=== PATIENT | female | born 1940 | race Caucasian/White ===

== ENCOUNTER 2024-02-11 05:33 | Inpatient (IN) | payer OTHER, SELFPAY ==
[2024-02-11] VITALS (32 sets, daily range): BP systolic 111–166; BP diastolic 33–88; PULSE 2–97
[2024-02-11] MEDS: DUONEB 3 ML INH ×4 (02:06→19:56)
[2024-02-11 02:11] LABS: Hematocrit 31.3 % (37.0-47.0); Hemoglobin 9.8 g/dL (12.0-16.0); Mean Corp Hgb Conc. 31.3 g/dL (33.0-37.0); Mean Corpuscular Hgb 28.8 pg (27.0-31.0); Mean Corpuscular Volume 92.1 fL (81.0-99.0); Mean Platelet Volume 12.6 fL (7.4-10.4); Platelet Count 205 10^3/uL (130-400); Red Cell Dist. Width 15.1 % (11.5-14.5); White Blood Cell Count 18.2 10^3/uL (4.8-10.8)
[2024-02-11 02:43] LABS: % Basophils 0.3 % (0-2); % Eosinophils 27.2 % (0-6); % Immature Granulocytes 0.2 % (0-0.5); % Lymphocytes 10.4 % (20.5-51.1); % Monocytes 4.4 % (1.7-9.3); % Neutrophils 57.5 % (42.2-75.2); Absolute Basophils 0.1 10^3/uL (0-0.2); Absolute Lymphocytes 1.9 10^3/uL (1.2-3.4); Absolute Monocytes 0.8 10^3/uL (0.1-0.6); Absolute Neutrophils 10.5 10^3/uL (1.4-6.5); Nucleated Red Blood Cells % 0 %
--- NOTE | 2024-02-11 02:47 | ED.GENMED ---
History of Present Illness
General
Chief Complaint: Breathing Problem
Source: patient, ambulance crew and previous hospital records (Previous hospitalization February 2021 after suffering a fall, treated for mild rhabdomyolysis, COPD, possible new lacunar infarct.)
Exam Limitations: clinical condition (Markedly weak, tachypneic, poor historian as to recent events) and altered mental status
Time Seen by Provider: 02/11/24 01:40
Nursing documentation reviewed up to this point in time: agreed with
History of Present Illness
History of Present Illness:
This is an 83-year-old woman who resides at home, receives help from caretakers. She has history of hypertension, hyperlipidemia, chronic kidney disease, COPD utilizing O2, 2 L at nighttime, rheumatoid arthritis chronically maintained on
prednisone, bioprosthetic aortic valve replacement, as well as history of potential acute infarct noted during hospitalization February 2021. Not maintained on anticoagulants save for low-dose aspirin.
She presents via EMS after inadvertently rolling out of bed injuring her right hand. She is unsure if she struck her head and is unsure how long she was lying on the floor next to her bed. She was found by juvenile counselor who then called 911. Upon EMS
arrival patient noted to be tachypneic, not wearing her oxygen and initial room air pulse ox 75%. Was given nebulizer treatment prehospital and placed on nasal cannula oxygen.
Patient states she generally does not require 24-hour oxygen, utilizes only at nighttime.
She is noted to have a skin tear and some bruising dorsal aspect of the right hand with moderate local pain. She is unsure if she struck her head but believes she may have. She denies headache, denies neck nor back pain.
She states she can generally walk with a walker.
Past History
Past History
ED Past Medical History: Asthma, COPD, CVA (Lacunar infarct 2020), HTN, Hypercholesterolemia, Psychiatric and Other (Rheumatoid arthritis chronically maintained on prednisone)
ED Past Surgical History: Cardiac (Bioprosthetic AV Replacement 2014) and Orthopedic
Social History
Tobacco: Former smoker
Alcohol: None
Drug: None
Living: with family
Family History
Family History: Negative Diabetes, Hypertension or CAD
Phy Exam
Physical Exam
Physical Exam:
GENERAL: 83-year-old woman appears somewhat chronically debilitated, mild to moderate resting tachypnea, able to speak in 1-2 word answers. Appears moderately weak, preferentially leaning to her left side.
EYE: pupils equal and reactive. Extraocular muscles intact anicteric
NECK: Supple, nontender, no midline bony tenderness, full range of motion without difficulty nor pain.. The head is normocephalic, atraumatic. No meningismus, no significant adenopathy.
ENT: posterior pharynx is clear, lips and oral mucosa are moderately dry. TM clear b/l, nares patent.
CARDIAC: Regular rate and rhythm. no murmur.
LUNGS: Mild to moderate respiratory distress with audible expiratory wheezing. Moderately decreased breath sounds throughout with scattered expiratory wheezing.
ABDOMEN: Soft, nondistended, without focal tenderness, no r/g, no cvat. normoactive BS.
BACK: No midline bony tenderness. No palpable bony pelvic tenderness.
NEUROLOGICAL: Awake, moderately drowsy, oriented x 2, motor strength 5/5 right upper extremity, 4/5 left upper extremity. Motor strength 4/5 right lower extremity, 3/5 left lower extremity. There is a questionable mild left facial droop versus
related to preferential positioning leaning to the left. No gross sensory deficits.
SKIN: Warm and dry, mildly pale in color, there is a 5 cm linear skin tear right dorsal hand. No active bleeding. Moderate local ecchymosis with moderate tenderness over the second metacarpal. There is full digit and wrist range of motion without
difficulty nor pain.
MUSCULOSKELETAL: No clubbing or cyanosis. Trace pretibial edema bilateral lower legs.
PSYCH: Mildly blunted affect. Cooperative.
Scores
Heart Failure Risk
Heart Failure Risk Score: Yes
History of Stroke or TIA: Yes
History of intubation for respiratory distress: No
Heart rate on ED arrival >/= 110: No
SaO2 <90% on arrival on room air: Yes
HR >/=110 during 3min walk test (or too ill to perform test): Yes
ECG has acute ischemic changes: No
Urea >/=12mmol/L (BUN 33.6mg/dL): Yes
Serum CO2>/=35mmol/L: No
Troponin I or T elevated to MT Level (0.4mg/dL): No
NT-proBNP >/=5,000ng/L (5,000pg/ml): No
HF Risk Score: 5
Admission Status: VERY HIGH RISK 39.8% Consider admission to hospital
Course
Orders/Labs/Results
Orders:
Orders
02/11/24 01:52
Electrocardiogram (*1) Urgent
Reason for Study: Other
Other Reason for Exam: Respiratory Distress
Cardiac Monitoring- Treatment ONCE
EKG- Treatment ONCE
IV Insert/Care/Rem.- Treatment PRN
CR Chest - 2 Views Urgent
Comment:
Reason For Exam: respiratory distress
O2 Therapy [RESP] Urgent
Titrate/Wean O2 to maintain O2 sat greater than (%): 93
Special Instructions: TO MAINTAIN CONTINUOUS O2 SATS >/= 93%
Pulse Ox/cont/shift [RESP] Urgent
Quantity: 1
Special Instructions: continuous pulse ox
02/11/24 01:54
CT Head W/o Iv Contrast Urgent
Comment:
Reason For Exam: fall out of bed, lethargy
Hand, Right 3 View [CR Hand - Right Min 3 Views] Urgent
Comment:
Reason For Exam: fall out of bed, R dorsal hand injury
02/11/24 01:57
Complete Blood Count/With Diff Urgent
02/11/24 02:03
Ipratropium/Albuterol Sulfate [Duoneb] 3 ml INH R NOW ONE
02/11/24 02:48
Comprehensive Metabolic Panel Urgent
Creatine Phosphokinase Urgent
NT-proBNP Urgent
Troponin I Urgent
02/11/24 03:46
Lactic Acid Urgent
02/11/24 03:58
Straight cath- Treatment ONCE
02/11/24 04:00
Piperacillin/Tazo 3.375 Gram [Zosyn] 3.375 gram in 50 ml IV NOW
02/11/24 04:06
LYTES [Electrolytes] Stat
Urinalysis Reflex To Culture Urgent
Date Specimen was Collected: 02/11/24
Time Specimen was Collected: 04:05
Urine Microscopic Reflex Cult Urgent
Urine Culture Urgent
AMBERLY Source: U
Specimen Description:
Date Specimen was Collected: 02/11/24
Time Specimen was Collected: 04:05
02/11/24 04:32
0.9% Sodium Chloride 1000 ml [Nss] 1,000 ml IV 80 mls/hr
Calcium Gluconate 1,000 mg IV NOW STA
Dextrose 50%-Water [Dextrose 50% Syringe] 12.5 grams IV [id number] PRN
Dextrose 50%-Water [Dextrose 50% Syringe] 25 grams IV NOW STA
Furosemide [Lasix] 20 mg IV NOW STA
Insulin Human Regular [Novolin R] 5 units IV NOW STA
02/11/24 04:33
Bedside Glucose- Treatment DIRECTED
Bedside Glucose- Treatment ONCE
02/11/24 04:57
Arterial Blood Gas Stat
%Oxygen/Room Air: 28
02/11/24 05:20
Admit/Transfer Patient As Directed
Co-Sign Provider:
Level of Care: Inpatient admission
Assign to:: IMU- Intermediate Care
Physician / Group: hospitalist
Diagnosis: acute respiratory distress
Reason for Hospitalization: respiratory distress
Expected length of stay greater than two midnights?: Yes
ELOS- Estimated Length of Stay in days: 2
I certify the patient meets the requirements for IP care: Yes
02/11/24 05:22
PRN Pain Medication Management As Directed
May give lesser potent ordered pain med per pt: Yes
preference::
Protocol:: Medication orders for pain may be administered in a
manner that supports deferring to patient preference
when the pt is:
- Requesting an ordered lesser potent pain medication.
Least to most potent pain medications are defined
as: acetaminophen < NSAID < tramadol < opioids
(morphine, oxycodone, hydromorphone).
- Requesting a lesser dose of the same medication IF
ORDERED.
- Requesting a less intrusive route of administration
if both routes are prescribed by the provider (PO <
IV).
Bipap [RESP] Urgent
Patient to use own unit?: No
Inspiratory Pressure (cm H2O): 10
Expiratory Pressure (cm H2O): 5
Oxygen Liter Flow: 3
02/11/24 05:24
Code Status As Directed
Resuscitation Status: Full Code
02/11/24 05:31
Albuterol Sulfate [Albuterol Sulfate Inhalant Solution] See Protocol INH R ONCE STA
Dosage in mg/hr: 10 mg/hr (2 mL/hr)
Duration of continuous nebulizer in hours: 4
Total dose delivered in m mg
Volume of Albuterol to add to nebulizer: 8 mL
Add saline for total nebulizer volume of: 100 mL
MethylPREDNISolone PF [Solu-Medrol Pf] 125 mg IV NOW STA
02/11/24 07:03
Potassium Urgent
Comment: draw 2 hours after regular insulin IV administration
02/11/24 09:05
Potassium Urgent
Comment: draw 4 hours after furosemide administered
Abnormal Lab Results
02/11/24 02/11/24 02/11/24
01:57 02:48 03:46
WBC 18.2 H 10^3/uL
(4.8-10.8)
RBC 3.40 L 10^6/uL
(4.20-5.40)
Hgb 9.8 L g/dL
(12.0-16.0)
Hct 31.3 L %
(37.0-47.0)
MCHC 31.3 L g/dL
(33.0-37.0)
RDW 15.1 H %
(11.5-14.5)
MPV 12.6 H fL
(7.4-10.4)
Absolute Neuts (auto) 10.5 H 10^3/uL
(1.4-6.5)
Absolute Monos (auto) 0.8 H 10^3/uL
(0.1-0.6)
Absolute Eos (auto) 5.0 H 10^3/uL
(0-0.7)
Lymphocytes % 10.4 L %
(20.5-51.1)
Eosinophils % 27.2 H %
(0-6)
pH
pCO2
pO2
ABG O2 Sat (Measured)
Potassium 6.6 H* mmol/L
(3.5-5.1)
Chloride
BUN 41 H mg/dl
(7-17)
Creatinine 1.8 H mg/dL
(0.6-1.0)
Glucose 130 H mg/dl
(70-99)
Lactic Acid 0.5 L mmol/L
(0.7-2.0)
Creatine Kinase 217 H U/L
(30-135)
Troponin I 0.047 H* ng/ml
Urine Bilirubin
Leukocyte Esterase Rfl
Urine Bacteria (Reflex)
Urine Albumin (Reflex)
02/11/24 02/11/24
04:06 04:57
WBC
RBC
Hgb
Hct
MCHC
RDW
MPV
Absolute Neuts (auto)
Absolute Monos (auto)
Absolute Eos (auto)
Lymphocytes %
Eosinophils %
pH 7.18 L*
(7.35-7.45)
pCO2 67 H mmHg
(32-35)
pO2 132 H mmHg
(83-108)
ABG O2 Sat (Measured) 99.7 H %
(94-98)
Potassium 6.3 H* mmol/L
(3.5-5.1)
Chloride 108 H mmol/L
(98-107)
BUN
Creatinine
Glucose
Lactic Acid
Creatine Kinase
Troponin I
Urine Bilirubin 1+ A
(Negative)
Leukocyte Esterase Rfl 1+ A
(Negative)
Urine Bacteria (Reflex) Few A
(Negative)
Urine Albumin (Reflex) 1+ A
(Neg - Trace)
02/11/24 01:57
02/11/24 04:06
Vital Signs
Initial and Last Documented VS:
Initial Vital Signs
Pulse Resp Pulse Ox
79 22 95
02/11/24 01:22 02/11/24 01:22 02/11/24 01:22
Last Documented Vital Signs
Temp Pulse Resp BP Pulse Ox
99.5 F 75 20 143/51 98
02/11/24 04:14 02/11/24 03:05 02/11/24 05:17 02/11/24 03:03 02/11/24 03:05
Procedures
Laceration Closure
Right Dorsal Hand:
Status of Wound: clean
Size of Wound in cm: 5
Description of Wound Edges: sharp
Preparation: cleaned with saline
Revision/Debridement: routine- no revision and irrigate-direct pressure
Wound exploration: explored to base- no FB
Type of Closure: Dermabond-skin glue
MDM/Problems Addressed
Differential Diagnosis Includes:
Concern for exacerbation of COPD, less likely CHF, pneumonia.
Patient is noted to have significant generalized weakness and is moderately weaker on the left compared to the right, concern for acute CVA. She cannot recall timing of her fall out of bed nor how long she was lying on the floor.
Also unclear as to timing of when she went to bed, thus at this point patient is a potential wake-up stroke versus chronic generalized weakness as she apparently does have caretakers at home.
Other consideration is rhabdomyolysis, concern for prolonged time after fall out of bed.
Concern for acute traumatic intracranial injury.
She is immunocompromised with chronic prednisone use, generalized weakness could also be related to sepsis, occult infectious process.
Mild to moderate resting tachypnea but pulse ox high 90s on 4 L nasal cannula.
Will give DuoNeb nebulizer.
Labs are pending. Will add CPK to assess for potential rhabdomyolysis.
Will check CT of the head as well as chest x-ray and x-ray of right hand. Concern for metacarpal fracture.
Skin tear has been thoroughly cleansed, irrigated with normal saline solution and repaired with Dermabond pernio.
Chronic conditions affecting care: HTN, Arrhythmia, COPD, Immunosuppressed and Kidney disease
*Radiology
Radiology exam reviewed: preliminary read by ED provider ( Chest x-ray concerning for subtle right lower lobe infiltrate, also consider very mild interstitial fullness compared to previous.)
*Pulse Oximetry
Patient hypoxic: yes
*EKG
Interpreted by ED Provider?: Yes
Comparison EKG: no changes (Unchanged from previous February 2021)
Rate: normal
Rhythm: sinus
[place]: left axis deviation
Interval: normal interval
QRS Pattern: normal QRS
Ischemia: no ischemia
*Outboard Motor Inspector Interpretation
Rate: normal
Interpretation: normal
Rhythm: sinus
*Critical Care Note
Total Time (30-74mins, 75-104mins- exclusive of procedures): 40
comment:
Critical care statement: A total of 40 minutes of critical care time was provided for this patient. This includes management of unstable vital signs, evaluation of the patient at bedside, reviewing the patient's pertinent medical records, discussion
with consultants, review of old EKGs and review of pertinent medical records. This time with separate from time utilized to perform the aforementioned documented procedures
Update Note
Update Note:
Patient is much less tachypneic after nebulizer treatment, she continues with moderate expiratory wheezing but increased air movement and is now noted to have some rales right base.
Chest x-ray concerning for subtle infiltrate right base. Questionable very mild interstitial fullness compared to previous film 2018.
CT of the head shows no acute traumatic findings, similar and unchanged from previous CT 2020.
Right hand x-ray shows no evidence of fracture, moderate DJD.
Labs are remarkable for moderately elevated white blood cell count of 18 which is new compared to previous, mild but overall stable anemia.
Acute significant hyperkalemia at 6.6 without associated acidosis. Chronic kidney disease is unchanged from previous. EKG shows normal sinus rhythm and there is
No evidence of peaked T waves thus concern for a variant potassium result and will repeat stat electrolytes. Hyperkalemia could certainly be cause for her profound generalized weakness.
CPK is only mildly elevated at 200 and likely not cause for hyperkalemia.
Troponin borderline elevated 0.047 but overall improved from previous result 2020. There is no evidence of ischemia on EKG and she continues to deny chest pain.
BNP is elevated at 3000 concerning for CHF.
Patient is afebrile but concern for sepsis thus will add lactic acid. Will repeat stat electrolytes and will check urinalysis.
Will initiate Zosyn for potential pneumonia.
If potassium returns elevated we will plan for IV calcium gluconate, dextrose, insulin as well as a small IV dose of Lasix.
Due to profound weakness, hyperkalemia, concern for pneumonia, concern for subacute CVA patient will require acute hospitalization.
02/11/2024 0522 AM
Potassium remains elevated 6.2.
Patient remains moderately lethargic, mildly/moderately tachypneic thus ABG obtained which shows acute respiratory acidosis with pH of 7.18, CO2 is 67. Normal bicarb, normal PaO2 of 132.
Will initiate BiPAP to assist with respiratory acidosis, hypercarbia which I suspect may be also contributing to her lethargy.
Patient has been evaluated by hospitalist and will plan to admit to ICU.
ED Attending Note
-
Portions of this chart may have been created with voice recognition software.� Occasional wrong word or��sound alike� substitutions may have occurred due to the inherent limitations of voice recognition software.
Discharge Plan
Departure
Patient Disposition: Admit
Date of Disposition: 02/11/24
Time of Disposition: 04:42
Admit to: ICU and IMU
Admit to doctor: Lebron
Presentation/result/management discussed w/ accepting MD/DO: Hospitalist
Condition: Serious
Discharge Problem:
Acute exacerbation of COPD with asthma, Acute hyperkalemia, RLL pneumonia, Contusion of hand, right, Skin tear of right hand without complication, Acute on chronic respiratory failure with hypoxia and hypercapnia
Interventions
Interventions:
*Risk Screen - Suicide Last Done: 02/11/24 01:32
*General Assessment Last Done: 02/11/24 01:32
*Neglect/Abuse Screening Last Done: 02/11/24 01:32
*ED COVID-19 Vaccine History Last Done: 02/11/24 01:40
ED- Cardiac Assessment Last Done: 02/11/24 03:34
ED- Pulmonary Assessment Last Done: 02/11/24 03:34
[2024-02-11 03:16] LABS: ALT (SGPT) 25 U/L (0-35); AST (SGOT) 34 U/L (14-36); Albumin 4.3 g/dl (3.5-5.0); Alkaline Phosphatase 117 U/L (38-126); Blood Urea Nitrogen 41 mg/dl (7-17); Calcium 9.7 mg/dl (8.4-10.2); Carbon Dioxide 23 mmol/L (22-30); Chloride 107 mmol/L (98-107); Creatine Phosphokinase 217 U/L (30-135); Glucose 130 mg/dl (70-99); Potassium 6.6 mmol/L (3.5-5.1); Sodium 142 mmol/L (135-145); Total Bilirubin 0.4 mg/dl (0.2-1.3); Total Protein 7.3 g/dl (6.3-8.2); eGFR 27.44
[2024-02-11 03:28] LABS: NT-proBNP 3010 pg/ml; Troponin I 0.047 ng/ml
[2024-02-11] MEDS: ZOSYN 50 IV ×4 (04:08→20:59)
[2024-02-11 04:10] LABS: Lactic Acid 0.5 mmol/L (0.7-2.0)
[2024-02-11 04:12] LABS: Urine Albumin 1+ (Neg - Trace); Urine Bilirubin 1+ (Negative); Urine Character Clear (Clear); Urine Color Yellow; Urine Glucose Negative (Negative); Urine Ketone Negative (Negative); Urine Leukocyte 1+ (Negative); Urine Nitrite Negative (Negative); Urine Occult Blood Negative (Negative); Urine Specific Gravity 1.025 (<1.030); Urine Urobilinogen Negative (Neg - 1+)
[2024-02-11 04:31] LABS: Carbon Dioxide 23 mmol/L (22-30); Chloride 108 mmol/L (98-107); Potassium 6.3 mmol/L (3.5-5.1); Sodium 142 mmol/L (135-145)
[2024-02-11 04:36] LABS: Urine Bacteria Few (Negative); Urine Red Blood Cell 0-2 /HPF (0-2)
--- NOTE | 2024-02-11 04:46 | HPS.HSE ---
Family Physician
-
Family Physician: NOT KNOW UNKNOWN - PT DOES
Chief Complaint
-
Hypoxic and found down at home.
History of Present Illness
Patient was unable to provide much history for me she was arousable and opens eyes but is not speaking or following commands. Also appears to have increased work of breathing with her.
Presents after being found down by EMS. Patient initially provided history to ED staff. She reported that she has been feeling unwell for about a couple of days. It is unclear the mechanism of pain on the floor. Patient stated that she rolled
out of bed and fell on the floor but when pressed she says she does not remember. It is unclear the last normal evaluation. She had somebody helping for the last 2 days due to feeling ill. Could not specify further. She did not mention any
nausea vomiting or diarrhea. She did not mention any chest pain. She did not mention any abdominal pain or discomfort. She did not mention any back pain. She had had no fevers. Unable to provide any medications or medication changes. Extremely
weak in the ED but had no complaints of focal weakness.
Is unclear how long she was down for. When found down by EMS she was hypoxic and wheezy. She was given some initial treatments placed on oxygen and brought to the ED. On arrival she was satting 75%. She has a temp of 99, blood pressure of 143/51
pulse of 75 and she satting 98% on nasal cannula. Initial troponin was 0.047 BNP 3010. Lactic acid is normal. Chest x-ray shows no acute infiltrates to me but cannot rule out retrocardiac opacity. No obvious pleural effusion. No obvious
pulmonary edema. ECG was normal sinus rhythm right bundle which is unchanged from prior.
The CT of the head shows no hemorrhage mass or mass effect. No obvious acute large stroke. Chronic sinusitis noted.
He has a white count of 15,000, hemoglobin was 9.8 with a platelet count of 205. She has a 27% eosinophil with peripheral eosinophilia. Initial potassium was 6.6 and on multiple repeats was 6.3. BUN/creatinine 41 and 1.8 respectively which is
unchanged from prior in any significant way. Glucose was 110. CK was 217. UA was contaminated and not obviously infected.
Medical History
Past Medical History
Past Medical History: Reports COPD, HTN and Hypercholesterolemia
Additional Past Medical History:
CKD
s/p bioprosthetic valve
RA
Anxiety
Chronic steroids
Past Surgical History: Reports Cardiac (Aortic Valve Replacement)
Social History
Unable to obtain full social history at this time due to: Acuity
Living: Alone
Family History
Family History: Not pertinent
Allergies / Home Medications
Allergies reflects when Allergies were last updated in [email or web address].
Home Medications with original date entered in [email or web address]
Allergy/Medication List:
Allergies
Allergy/AdvReac Type Severity Reaction Status Date / Time
seasonal allergies Allergy Unknown Uncoded 03/10/22 17:35
Home Medications
montelukast 10 mg tablet 10 mg PO DAILY Mental Health/Anxiety 07/09/13
budesonide-formoterol HFA 80 mcg-4.5 mcg/actuation aerosol inhaler (Symbicort) 2 puff inhalation R BIDPRN PRN sob/congsetionallergies 12/18/17
gabapentin 300 mg capsule 300 mg PO DAILY Neurological Condition 12/18/17
magnesium oxide 800 mg PO DAILY Constipation 12/18/17
omeprazole 40 mg capsule,delayed release 40 mg PO DAILY Gastrointestinal issue 12/18/17
paroxetine HCl 20 mg tablet 20 mg PO DAILY Mental Health/Anxiety 12/18/17
albuterol sulfate 90 mcg/actuation aerosol inhaler 2 puff inhalation R Q4HPRN PRN sob 03/08/21
clonidine HCl 0.1 mg tablet 0.1 mg PO DAILY Blood pressure 03/08/21
clonidine HCl 0.1 mg tablet 0.2 mg PO QPM Blood pressure 03/08/21
prednisone 5 mg tablet 15 mg PO DAILY Anti-inflammatory 03/08/21
amlodipine 5 mg tablet 5 mg PO BID #60 tabs 03/11/21
aspirin 81 mg tablet,delayed release 81 mg PO DAILY #30 tabs 03/11/21
atorvastatin 80 mg tablet 80 mg PO QPM #30 tabs 03/11/21
prednisone 20 mg tablet 40 mg (2 x 20 mg) PO DAILY #10 tabs 03/10/22
If medication reconciliation has not been performed, why?: Medication List N/A
Review of Systems
-
Unable to obtain full review of systems at this time due to: Acuity
Physical Exam
Vital Signs
Vital Signs
Temp Pulse Resp BP Pulse Ox
99.5 F 75 18 143/51 98
02/11/24 04:14 02/11/24 03:05 02/11/24 03:05 02/11/24 03:03 02/11/24 03:05
Physical Exam
General: Respiratory Distress
HEENT: NormoCephalic, Anicteric, Atraumatic, PERRLA and Oxygen
Respiratory: Wheezes and Accessory Resp Muscle Use
Cardiac: S1/S2, Regular Rhythm and JVD
Breast: Deferred by me
GI: Soft, Non Tender, Non Distended and Normal Bowel Sounds
Rectal: Deferred by Provider
Genito-urinary: Deferred by me
Musculoskeletal: No Clubbing, No Cyanosis and No Edema
Skin: Warm
Hematologic/Lymphatic: No Lymphadenopathy
Laboratory Results
-
02/11/24 01:57
Laboratory Results
Lactic Acid 0.5 mmol/L (0.7-2.0) L 02/11/24 03:46
Total Bilirubin 0.4 mg/dl (0.2-1.3) 02/11/24 02:48
AST 34 U/L (14-36) 02/11/24 02:48
ALT 25 U/L (0-35) 02/11/24 02:48
Alkaline Phosphatase 117 U/L (38-126) 02/11/24 02:48
Troponin I 0.047 ng/ml H* 02/11/24 02:48
Data Reviewed
-
Diagnostic Radiology: Image Personally Visualized and interpreted
CT Scan: Report Reviewed by me
Medical Tests (Nuc Med, Echo, EKG etc): Image Personally Visualized and interpreted
Lab Data: Labs Reviewed by me
Old Records: Reviewed
Impression/Plan
-
IMPRESSION:
PLAN:
1. Altered mental status - Patient found down and unable to provide history. Weakness on the left side but generally non-focal exam. Only arousable for me but unable to follow commands. No intracranial hemorrhage, mass or mass effect. Cannot
rule out CVA. Possibly toxic metabolic encephalopathy from acute infectious process or from respiratory distress. ABG 7.. She is extremely fatigued. negative urine cultures and afebrile. Marked leukocytosis with eosinophilia.
- admit to imu
- npo for now
- neurochecks q 6
- mri if persistent deficit after correction of acidemia
- iv antibiotics for presumed infection (cannot rule out aspiration), check mrsa swab, legionella ag and procalcitonin
- consider neuroconsult pending stabilization of respiratory status
2. Acute respiratory distress w/o hypoxia - Acute respiratory acidosis. Increased WOB. Wheezing and quite tight. No obvious focal infiltrates or edema. Marked peripheral eosinophila
- place on continous nebs x 4 hours
- bipap 04/17, repeat gas in1 hour
- iv solu-medrol 125 mg once then 40 q 6
- iv lasix x 1 for now, monitor
- continue RTC albuterol q 4 hours after continous nebs
- satting well on 2 - 4 L NC
- pulmonary consultation given degree of peripheral eosinophilia, consider b D-glucan or galactomannan
- ok with zosyn for now.
3. Hyperkalemia - Unclear etiology. No DKA. Has significant CKD but renal function is only slightly worsened. Possibly cellular shifts
- temporize with insulin/dextrose
- continous nebs x 4 hours
- repeat in 4 hours
4. Trop elevation - No ischemia on ECG. No CP. h/o but no known CAD. Trop 0.05
- suspect demand, treating underlying conditions as above
- trend troponin
- aspirin/statin
- echo in am
5. CHF - s/p MVR. Has elevated neck veins. Elevated BNP. No known CHF. No crackles on my exam but poor inspiratory effort and very tight.
- given lasix 20mg in ED,
- echo
- hold off on additional lasix for now
6. HTN - Unable to determine home meds. Previously on amlodipine and clonidine. BP stable
- npo for now
- prn hydralazine 10mg q 6 for SBP < 170
- consider clonidine patch
7. RA - On chronic steroids 15mg daily per records
- on solumedrol currently
DVT PPX - heparin sq
Code Status - Full code based on prior records
[2024-02-11] MEDS: CALCIUM GLUCONATE 1000 MG IV (04:53)
[2024-02-11] MEDS: DEXTROSE 50% SYRINGE 25 GRAMS IV ×2 (04:53→20:53)
[2024-02-11] MEDS: LASIX 20 MG IV (04:53)
[2024-02-11] MEDS: NOVOLIN R 5 UNITS IV (04:54)
[2024-02-11 05:07] LABS: O2 Saturation % 99.7 % (94-98); PCO2 67 mmHg (32-35); PO2 132 mmHg (83-108)
[2024-02-11 05:10] LABS: pH 7.18 (7.35-7.45)
[2024-02-11] MEDS: NSS 1000 IV (05:27)
[2024-02-11 05:36] LABS: Glucose - Point of Care 191 mg/dl (70-99)
[2024-02-11] MEDS: [UNRECOGNIZED DRUG - OTHER] 4 MG INH (06:08)
[2024-02-11 06:29] LABS: Glucose - Point of Care 71 mg/dl (70-99)
[2024-02-11] MEDS: SOLU-MEDROL PF 125 MG IV (06:35)
[2024-02-11] MEDS: DEXTROSE 50% SYRINGE 12.5 GRAMS IV (06:43)
--- NOTE | 2024-02-11 07:11 | EDRN ---
previous night auditor RN called report to the receiving ICU nurse, the pt is resting in stretcher in the lowest position, side rails up x2, call morley within reach, HOB elevated, VS WNL, the pt is lethargic, currently on [place] with breathing
treatment running, Sp02 96%, skin assessed with prior night auditor RN and right arm skin tear present, the pt was turned and repositioned, brief is dry and clean, will continue to monitor the pt closely
[2024-02-11 07:12] LABS: Glucose - Point of Care 100 mg/dl (70-99)
[2024-02-11 07:14] LABS: Potassium 5.3 mmol/L (3.5-5.1)
--- NOTE | 2024-02-11 07:20 | EDRN ---
the pts K came down to 5.3, provider notified
--- NOTE | 2024-02-11 08:03 | PHANOTE ---
med rec not- patient on respiratory machine at this time and not answering question. notes stated patient has infectious diseases physician but no number for her. patient family on file but [place]. patient has no ecw to compare.
--- NOTE | 2024-02-11 09:00 | PTCARENOTE ---
Rec'd patient from ED. Patient lethargic. Arousable with tactile stimuli. Patient briefly opening eyes. Pupils equal and reactive; +2mm. Moving b/l hands and feet upon request. NSR on tele monitor. BiPAP settings adjusted by RT. 14/5 4L. Lung sounds
shallow/diminished with scattered wheezing throughout. +BS. No BM. Purewick in place for urinary incontinence. Right hand skin tear dressing intact. B/l heels boggy; foams applied. Small scattered scabs noted on b/l calf. LFA and LAC INTs flushed
and capped.
[2024-02-11] MEDS: DUONEB INH (09:27)
[2024-02-11 10:18] LABS: Iron 57 ug/dl (37-170)
[2024-02-11 10:28] LABS: Percent Saturation 22 % (20-50); Total Iron Binding Capacity 256 ug/dl (265-497)
[2024-02-11] MEDS: PROTONIX IV 40 MG IV (10:36)
[2024-02-11] MEDS: NSS (PRESERVATIVE FREE) 10 ML IV (10:36)
[2024-02-11] MEDS: HEPARIN 5000 UNITS SC ×2 (10:36→17:43)
--- NOTE | 2024-02-11 10:42 | CM ---
CM reviewed chart and discussed with nursing
Pt not able to provide meaningful info at this time
Call with pt's friend Zonia Juarez [phone]
Pt resides alone in a [address] with [address] in [place]
Pt ambulates with a WW or SPC
She has a paid caregiver/Светлана [phone]) 11-5PM 7 days weekly
Unknown if pt has VN currently
PCP- Carlo Hernandez
Rx- Obed Kenney
Pt's dtr/Samina and MARK/Radha resides in [facility]
Zonia is local and help Ursula out as needed
Discharge Disposition- home with [facility] private duty, watch for higher needs
[2024-02-11 10:53] LABS: Ferritin 44.8 ng/ml (11.1-264.0)
[2024-02-11 11:07] LABS: Vitamin B12 950 pg/ml (239-931)
--- NOTE | 2024-02-11 11:31 | PTCARENOTE ---
Patient more arousable. Remains on BiPAP. RT at bedside to draw ABG.
[2024-02-11 11:35] LABS: Troponin I 0.047 ng/ml
[2024-02-11 11:50] LABS: B.E. -9.3 mmol/L; HCO3 19.7 mmol/L (21-28); O2 Saturation % 99.7 % (94-98); PCO2 58 mmHg (32-35); PO2 76 mmHg (83-108)
[2024-02-11 11:53] LABS: pH 7.14 (7.35-7.45)
[2024-02-11] MEDS: SOLU-MEDROL PF 40 MG IV ×2 (12:19→17:43)
--- NOTE | 2024-02-11 12:34 | CON.PUL ---
Consultation
Consultation Request
Date/Time Consultation Requested: 02/11/24
Date/Time Consultation Performed: 02/11/24
Performing Provider: Kaleigh
Reason for Consultation: COPD
Medical History
-
History of Present Illness:
Patient is an 83-year-old female with previous history of ACOS, hypertension, chronic kidney disease, status post AVR 2012 at [place] presenting to ER following unresponsiveness at home. She was found down by EMS after not feeling well for a
couple days prior to admission. A personal friend gives history as patient could not elaborate. Unclear how long she was found down, she was noted to be hypoxic and wheezing on initial assessments. She is placed on oxygen. Chest x-ray is clear.
ABG performed showing acute CO2 retention placed on BiPAP. She is admitted to IMU.
.
Past Medical History
Past Medical History: Other (see list below)
Social History
Tobacco: Non-smoker
Alcohol: None
Drug: None
Family History
Family History: Unable to Obtain
Allergies / Home Medications
Allergies
Allergy/AdvReac Type Severity Reaction Status Date / Time
seasonal allergies Allergy Unknown Uncoded 03/10/22 17:35
Home Medications
�Medication �Instructions �Recorded �Confirmed �Last Taken �Type
montelukast 10 mg tablet 10 mg PO DAILY Mental 07/09/13 02/11/24 01/21/14 History
Health/Anxiety
gabapentin 300 mg capsule 300 mg PO DAILY Neurological 12/18/17 02/11/24 Unknown History
Condition
magnesium oxide 800 mg PO DAILY Constipation 12/18/17 03/08/21 Unknown History
albuterol sulfate 90 mcg/actuation 2 puff inhalation R Q4HPRN PRN sob 03/08/21 02/11/24 Unknown History
aerosol inhaler
clonidine HCl 0.1 mg tablet 0.1 mg PO DAILY Blood pressure 03/08/21 02/11/24 Unknown History
prednisone 5 mg tablet 15 mg PO DAILY Anti-inflammatory 03/08/21 03/08/21 Unknown History
amlodipine 5 mg tablet 5 mg PO BID #60 tabs 03/11/21 02/11/24 Unknown Rx
aspirin 81 mg tablet,delayed 81 mg PO DAILY #30 tabs 03/11/21 Unknown Rx
release
atorvastatin 80 mg tablet 80 mg PO QPM #30 tabs 03/11/21 02/11/24 Unknown Rx
lisinopril 5 mg tablet 5 mg PO DAILY Blood Pressure 02/11/24 02/11/24 Unknown History
omeprazole 20 mg capsule,delayed 20 mg PO DAILY Gastrointestinal 02/11/24 02/11/24 Unknown History
release Issue
Review of Systems
-
Unable to Obtain full review of systems at this time due to: Acuity
Vitals / Labs / Diagnostic Testing
Vital Signs
Temp Pulse Resp BP Pulse Ox
98.3 F 73 21 124/60 99
02/11/24 08:49 02/11/24 12:21 02/11/24 12:21 02/11/24 12:21 02/11/24 12:21
Lab Data
02/11/24 01:57
02/11/24 09:05
Laboratory Results
02/11/24 02/11/24
04:57 11:39
pH 7.18 L* 7.14 L*
pCO2 67 H 58 H
pO2 132 H 76 L
HCO3 25.0 19.7 L
O2 Delivery Level
Diagnostic Testing:
Physical Exam
-
HEENT: Normocephalic, Anicteric and Moist Mucous Membranes
Cardiovascular: S1/S2 and Regular Rhythm
Respiratory: Clear and Non-Labored Respirations
GI: Soft, Non Distended and Non Tender
Neurology: Awake, Alert, No Motor Deficits and Other (confused, not answering appropriately at times)
Skin: Warm and Dry
General: Comfortable and Other (NAD)
Assessment
-
Patient is an 83-year-old female with previous history of ACOS, hypertension, chronic kidney disease, status post AVR 2012 at [place] presenting to ER following unresponsiveness at home. She was found down by EMS after not feeling well for a
couple days prior to admission. A personal friend gives history as patient could not elaborate. Unclear how long she was found down, she was noted to be hypoxic and wheezing on initial assessments. She is placed on oxygen. Chest x-ray is clear.
ABG performed showing acute CO2 retention placed on BiPAP. She is admitted to IMU.
Acute hypoxic respiratory failure
Acute hypercarbic respiratory failure on BiPAP, ABG
Unresponsive at home, found down by EMS
Leukocytosis
Acute on chronic anemia
Hyperkalemia
Acute kidney injury, 1.8 (BL 1.3-1.5)
Volume overload, proBNP 3010
Conditions present HAND LASTER
Small bowel obstruction, status post left inguinal incarcerated hernia status post repair with mesh 12/18/17
COPD/ Asthma, followed at [facility] before, now with Dr Walters/Stu
Severe obstructive physiology, FEV1 0.83 L
Normal alpha1/igG levels, IgE 715/RAST panel; prior history of bronch with normal cell count/+MRSA/+PCR mycoplasma
Diffuse chronic sinusitis
RA
CKD
GERD/HH/Schatzki's ring dysmotility that was moderately severe and high-grade spontaneous reflux, positive pH probe when recumbent
HTN
HLD
Anxiety
Osteoporosis
B/L total hip replacements
AVR 04/07/13 at [facility] with Dr Santos
ZAINA
Plan
Hypoxemia noted on arrival, O2 edward 78% per report
Currently saturating 99% on BIPAP, can transition off as tolerated
Home O2 evaluation, eventually
Reportedly using PRN O2 at home
Prior history of lung disease is noted including ACOS
Had seen Dr. Connell and Dr. Walters in the past, she does not recall the last time she had seen them
Notably had severe obstructive lung disease with concern for allergic rhinitis-positive IgE/RAST panel in the past
Status post bronchoscopy in the past with MRSA and PCR positive mycoplasma
Suspect patient has acute CO retention from unknown cause
Initial head CT negative, she does not recall events
Underlying dementia may be present as well
CXR/CT obtained indicating NAD
Other imaging reviewed
MELLY and CKD history
HyperK noted
Observe UO, if low consider renal eval
WBC noted
Would be reasonable to r/o infection
Prior ECHO results are reviewed indicating stable AVR
Can repeat testing
proBNP >3000 suggestive volume component as well
Reasonable to discuss GOC, code status
PT/OT eval eventually
We will follow
Diagnostic Data
Chest X-Ray: 02/11/24- 1. Mild hyperinflation, suggestive of COPD.
2. Hazy opacity at the right lung base, which may represent vascular crowding due to COPD or subtle pneumonia.
CT Scan: CAP 01/24/24- There is no evidence of soft tissue mass over the posterior upper chest. No CT finding that would correspond to the findings seen on recent chest radiograph. Minimal dependent atelectasis in the posterior and inferior lower
lobes. 2-mm subpleural nodule in the posterior right lower lobe. This is compatible with a benign nodule and no further follow-up is felt to be necessary.
Small central hiatal hernia. Cholelithiasis with no evidence of gallbladder wall thickening or adjacent edema. Colonic diverticula with no CT evidence of diverticulitis. Changes involving both shoulders and the right hip joint, highly suggestive of
rheumatoid arthritis. Status-post left hip replacement with resultant streak artifact.
Echo: 2012-LV normal in size, mild concentric LVH. New septal paradox is noted. Moderate diastolic dysfunction, EF 70%, biological AV prosthesis. AV peak gradient 20.6, AV mean gradient 11
PFT's: FEV1 1.28L, FVC 2.03L
Reports and relevant images were personally reviewed.
Total time spent on this consultation __75__ includes review of history, physical exam, medications, laboratory data, personal review of imaging, extensive review of outpatient records, discussion with care team and respiratory therapy.
--- NOTE | 2024-02-11 12:57 | W.PN.HOSP.TC ---
Today's Communication/Plan
-
bipap
repeat gas still low PH
Continue BIPAP
Neuro checks
MRI brain when stable
Assessment / Plan
Assessment / Plan
83-year-old female brought in by EMS patient rolled out of bed and fell on the floor unclear how long she was on the floor when EMS arrived her sats were 75%
Head CT-no intracranial hemorrhage or fracture. Mild atrophy. Right posterolateral scalp lesion partially calcified 1.7 cm likely benign chest x-ray-COPD
Pneumonia versus atelectasis right base
CVS: S1-S2 normal
Chest: CTA B/L
Abdomen: Soft, NT / Bowel sounds present
Extremities: No edema
ORDER MANAGER: I didn't appreciate a facial droop, she is drowsy arousable.
# TME
Left-sided weakness-noted on admission. Neuroexam was not possible as she was not cooperative , neurochecks and MRI
# Acute respiratory distress, acute hypoxic respiratory failure
Asthma/COPD exacerbation
Chronic bronchitis
Chronic respiratory failure on home oxygen
Continue nebulizer
BiPAP
IV steroids
Wean oxygen as tolerated
Continue Zosyn for now-right base possible pneumonia
Speech evaluation
# Mildly elevated troponin-pending repeat
# Paroxysmal atrial fibrillation-does not seem to be on anticoagulation as outpatient. Not on any beta-blockers or calcium channel blockers
# Hyperkalemia-treated better. Follow. Hold lisinopril. Will not restart
# CKD stage III
# Anemia-check iron studies
# Rheumatoid arthritis-on prednisone 15 mg daily as outpatient it looks like from previous. On IV steroids now
# GERD-PPI
# Hyperlipidemia-continue statin when able to take p.o.
# Hypertension-on clonidine, amlodipine-to be started after verification. Hold lisinopril. On as needed hydralazine now
# History aortic valve repair
# Arthritis/osteoporosis
# Ex-smoker
# DVT prophylaxis-subcutaneous heparin
D/W Friend at bed side
D/RN at bed side
Called Daughter Son AHSAN answered, says they both have POA. Updated re Gas and how she is. Adde\\ssed code status. He needs to talk to and get back to us.
Total Critical Care Time 40 minutes. I was immediately available to the patient and staff. I personally examined, reviewed labs, diagnostic images/reports, interpretations, treatment plans, discussed patient care with other providers and family
entered orders as appropriate and documented the medical record.
Part of this note was created using voice recognition system. Occasional wrong word or��sound alike� substitutions may have inadvertently occurred due to the inherent limitations of voice recognition software. If noted kindly bring it to my
attention for correction.
Anticipated Discharge: > 48 hours
Subjective/Interval History
-
Date of Service: February 11, 2024
Objective Data
-
Labs:
Laboratory Results
02/11/24 02/11/24 02/11/24
01:57 02:48 04:06
WBC 18.2 H
Hgb 9.8 L
Hct 31.3 L
Plt Count 205
HCO3
Sodium Cancelled 142 142
Potassium Cancelled 6.6 H* 6.3 H*
Chloride Cancelled 107 108 H
Carbon Dioxide Cancelled 23 23
BUN Cancelled 41 H
Creatinine Cancelled 1.8 H
Glucose Cancelled 130 H
Calcium Cancelled 9.7
Total Bilirubin Cancelled 0.4
AST Cancelled 34
ALT Cancelled 25
Alkaline Phosphatase Cancelled 117
02/11/24 02/11/24 02/11/24
04:57 06:56 09:05
WBC
Hgb
Hct
Plt Count
HCO3 25.0
Sodium
Potassium 5.3 H Cancelled
Chloride
Carbon Dioxide
BUN
Creatinine
Glucose
Calcium
Total Bilirubin
AST
ALT
Alkaline Phosphatase
02/11/24
11:39
WBC
Hgb
Hct
Plt Count
HCO3 19.7 L
Sodium
Potassium
Chloride
Carbon Dioxide
BUN
Creatinine
Glucose
Calcium
Total Bilirubin
AST
ALT
Alkaline Phosphatase
Vital Signs:
Vital Signs
Temp Pulse Resp BP Pulse Ox
98.3 F 73 21 124/60 99
02/11/24 08:49 02/11/24 12:21 02/11/24 12:21 02/11/24 12:21 02/11/24 12:21
[2024-02-11] MEDS: OCEAN, SALINE MIST 2 SPRAYS NASAL (16:45)
[2024-02-11 20:23] LABS: Venous Blood Gas B.E. -8.6 mmol/L (-4 to +4); Venous Blood Gas HCO3 19.5 mmol/L (22-27); Venous Blood Gas O2 Sat % 94.4 %; Venous Blood Gas pCO2 51 mmHg (35-48); Venous Blood Gas pO2 60 mmHg (30-50)
[2024-02-11 20:24] LABS: Venous Blood Gas O2 Therapy %Oxygen/Room Air 40
[2024-02-11 20:25] LABS: Venous Blood Gas pH 7.19 (7.32-7.43)
[2024-02-11 20:41] LABS: Blood Urea Nitrogen 45 mg/dl (7-17); Calcium 9.9 mg/dl (8.4-10.2); Carbon Dioxide 19 mmol/L (22-30); Chloride 107 mmol/L (98-107); Estimated Creatinine Clearance 17 ml/min; Glucose 108 mg/dl (70-99); Potassium 6.7 mmol/L (3.5-5.1); Sodium 142 mmol/L (135-145); eGFR 24.18
[2024-02-11 20:50] LABS: Troponin I 0.035 ng/ml
[2024-02-11] MEDS: NOVOLIN R 10 UNITS IV (20:53)
[2024-02-11] MEDS: DESENEX/MITRAZOL/ZEASORB 1 APPLIC TOPICAL (20:58)
[2024-02-11 22:14] LABS: Glucose - Point of Care 183 mg/dl (70-99)
[2024-02-12] VITALS (26 sets, daily range): BP systolic 132–176; BP diastolic 52–146; PULSE 2–84; O2SAT 92–94; BMI 18.9
--- NOTE | 2024-02-12 00:19 | PTCARENOTE ---
Pt received at 19:00, initial assessment as documented. Pt drowsy but easily arousable to verbal stimuli. Remains on bipap 14/5, 2L. K was 6.7, insulin and d50 given as ordered. Safe environment maintained, call morley within reach.
[2024-02-12] MEDS: SOLU-MEDROL PF 40 MG IV ×2 (00:48→05:00)
[2024-02-12] MEDS: HEPARIN 5000 UNITS SC ×3 (03:43→18:07)
[2024-02-12 03:51] LABS: Venous Blood Gas B.E. -6.9 mmol/L (-4 to +4); Venous Blood Gas HCO3 20.5 mmol/L (22-27); Venous Blood Gas O2 Sat % 92.1 %; Venous Blood Gas pCO2 49 mmHg (35-48); Venous Blood Gas pH 7.23 (7.32-7.43); Venous Blood Gas pO2 55 mmHg (30-50)
[2024-02-12 04:04] LABS: Hematocrit 29.1 % (37.0-47.0); Hemoglobin 9.1 g/dL (12.0-16.0); Mean Corp Hgb Conc. 31.3 g/dL (33.0-37.0); Mean Corpuscular Hgb 28.9 pg (27.0-31.0); Mean Corpuscular Volume 92.4 fL (81.0-99.0); Mean Platelet Volume 11.7 fL (7.4-10.4); Platelet Count 179 10^3/uL (130-400); Red Blood Cell Count 3.15 10^6/uL (4.20-5.40); Red Cell Dist. Width 14.8 % (11.5-14.5); White Blood Cell Count 7.4 10^3/uL (4.8-10.8)
[2024-02-12 04:23] LABS: Blood Urea Nitrogen 48 mg/dl (7-17); Calcium 9.6 mg/dl (8.4-10.2); Carbon Dioxide 20 mmol/L (22-30); Chloride 109 mmol/L (98-107); Estimated Creatinine Clearance 17 ml/min; Glucose 104 mg/dl (70-99); Magnesium 2.6 mg/dl (1.6-2.3); Potassium 6.3 mmol/L (3.5-5.1); Sodium 142 mmol/L (135-145); eGFR 24.18
[2024-02-12 04:24] LABS: Procalcitonin 0.34 ng/ml (0.0-0.25)
[2024-02-12] MEDS: NOVOLIN R 10 UNITS IV (04:53)
[2024-02-12] MEDS: ZOSYN 50 IV ×4 (04:59→21:45)
[2024-02-12] MEDS: DEXTROSE 50% SYRINGE 25 GRAMS IV (05:00)
--- NOTE | 2024-02-12 05:24 | PTCARENOTE ---
Pt with small episode of urinary incontinence x1 approx 23:00, with no further urine output. bladder scan at 05:00 = 224ml, denies urge to void.
--- NOTE | 2024-02-12 07:14 | W.PN.PUL3 ---
Today's Communication / Plan
-
Doing well off bipap, mental status improved
Will c/s CM to arrange home set up
Transition IV steroids to PO taper
Consider diuresis
Eventual home O2 eval
PT/OT
Transfer to tele
Assessment
-
Patient is an 83-year-old female with previous history of ACOS, hypertension, chronic kidney disease, status post AVR 2012 at [place] presenting to ER following unresponsiveness at home. She was found down by EMS after not feeling well for a
couple days prior to admission. A personal friend gives history as patient could not elaborate. Unclear how long she was found down, she was noted to be hypoxic and wheezing on initial assessments. She is placed on oxygen. Chest x-ray is clear.
ABG performed showing acute CO2 retention placed on BiPAP. She is admitted to IMU.
Acute hypoxic respiratory failure
Acute hypercarbic respiratory failure on BiPAP, ABG 7.
Unresponsive at home, found down by EMS
Leukocytosis
Acute on chronic anemia
Hyperkalemia
Acute kidney injury, 1.8 (BL 1.3-1.5)
Volume overload, proBNP 3010
Conditions present BOIL[employer]ER SHIP
Small bowel obstruction, status post left inguinal incarcerated hernia status post repair with mesh 12/18/17
COPD/ Asthma, followed at [facility] before, now with Dr Walters/Stu
Severe obstructive physiology, FEV1 0.83 L
Normal alpha1/igG levels, IgE 715/RAST panel; prior history of bronch with normal cell count/+MRSA/+PCR mycoplasma
Diffuse chronic sinusitis
RA
CKD
GERD/HH/Schatzki's ring dysmotility that was moderately severe and high-grade spontaneous reflux, positive pH probe when recumbent
HTN
HLD
Anxiety
Osteoporosis
B/L total hip replacements
AVR 04/07/13 at [facility] with Dr Santos
ZAINA
Plan
Hypoxemia noted on arrival, O2 edward 78% per report
Currently saturating 99% on BIPAP, can transition off as tolerated
Home O2 evaluation, eventually
Reportedly using PRN O2 at home
Prior history of lung disease is noted including ACOS
Had seen Dr. Connell and Dr. Walters in the past, she does not recall the last time she had seen them
Notably had severe obstructive lung disease with concern for allergic rhinitis-positive IgE/RAST panel in the past
Status post bronchoscopy in the past with MRSA and PCR positive mycoplasma
Placed on IV steroids, will cut down to tapering PO dosage
Set up home BIPAP
Suspect patient has acute CO retention from unknown cause
Initial head CT negative, she does not recall events
Underlying dementia may be present as well
Improving
CXR/CT obtained indicating NAD
Other imaging reviewed
MELLY and CKD history
HyperK noted
Observe UO, if low consider renal eval
WBC noted
Would be reasonable to r/o infection
Prior ECHO results are reviewed indicating stable AVR
Can repeat testing
proBNP >3000 suggestive volume component as well
Diuresis per team
Reasonable to discuss GOC, code status
PT/OT eval eventually
Transfer to tele
Diagnostic Data
Chest X-Ray: 02/11/24- 1. Mild hyperinflation, suggestive of COPD.
2. Hazy opacity at the right lung base, which may represent vascular crowding due to COPD or subtle pneumonia.
CT Scan: CAP 01/24/24- There is no evidence of soft tissue mass over the posterior upper chest. No CT finding that would correspond to the findings seen on recent chest radiograph. Minimal dependent atelectasis in the posterior and inferior lower
lobes. 2-mm subpleural nodule in the posterior right lower lobe. This is compatible with a benign nodule and no further follow-up is felt to be necessary.
Small central hiatal hernia. Cholelithiasis with no evidence of gallbladder wall thickening or adjacent edema. Colonic diverticula with no CT evidence of diverticulitis. Changes involving both shoulders and the right hip joint, highly suggestive of
rheumatoid arthritis. Status-post left hip replacement with resultant streak artifact.
Echo: 2013-LV normal in size, mild concentric LVH. New septal paradox is noted. Moderate diastolic dysfunction, EF 70%, biological AV prosthesis. AV peak gradient 20.6, AV mean gradient 11
PFT's: FEV1 1.28L, FVC 2.03L
Reports and relevant images were personally reviewed.
Total time spent on this encounter __50__ includes review of history, physical exam, medications, laboratory data, personal review of imaging, extensive review of outpatient records, discussion with care team and respiratory therapy.
Subjective Data
-
Date of Service:
Date of Service: February 12, 2024
Chief Complaint: Pulmonary Follow Up
Subjective:
no acute events ON, remains stable on low O2 supplemental
off bipap, mentating better
Objective Data
Data Reviewed
Vital Signs / I&O / Oxygen:
Vital Signs
Temp Pulse Resp BP Pulse Ox
99.1 F 80 23 144/58 96
02/12/24 03:28 02/11/24 19:58 02/11/24 19:58 02/11/24 18:00 02/11/24 23:00
Intake and Output
02/11/24 02/12/24 02/13/24
06:59 06:59 06:59
Intake Total 100 / 100
Output Total 300 / 300
Balance -200 / -200
SaO2 96
Nasal Cannula flow liters per 96
minute
Physical Exam
General: Comfortable and Other (NAD)
HEENT: Normocephalic, Anicteric and Moist Mucous Membranes
Cardiovascular: S1-S2 and Regular Rhythm
Respiratory: Clear and Non-Labored Respirations
GI: Soft, Non Distended and Non Tender
Neurology: Awake, Alert and No Motor Deficits
Skin: Warm, Dry and Good Color
Labs/Micro/Reports
Lab Data
02/12/24 03:40
Laboratory Results
02/11/24
11:39
pH 7.14 L*
pCO2 58 H
pO2 76 L
HCO3 19.7 L
O2 Delivery Level
Microbiology
02/11/24 04:06 Urine Legionella Urinary Antigen - Final
Negative for Legionella pneumophila Serogroup 1 antigen.
A negative result does not rule out the possiblity of
Legionella infection due to other serogroups or species of
Legionella. Clinical correlation is recommended.
[2024-02-12] MEDS: DUONEB 3 ML INH (07:55)
[2024-02-12] MEDS: PROTONIX IV 40 MG IV (08:22)
[2024-02-12] MEDS: DESENEX/MITRAZOL/ZEASORB 1 APPLIC TOPICAL ×2 (08:22→20:43)
[2024-02-12] MEDS: NSS (PRESERVATIVE FREE) 10 ML IV (08:22)
--- NOTE | 2024-02-12 08:30 | PTCARENOTE ---
Assumed care of pt at 0715 following shift report. Pt received on O2 at 2l/min via NC w/ POx 92-96%. Asleep but easily arousable to name. Oriented to person and place. 'no idea' to date/time. Denies c/o pain. Reports 'stuffy nose' but denies SOB.
Physical assessment completed as documented. Call morley w/in pt reach. Safe environment maintained.
[2024-02-12 08:51] LABS: Blood Urea Nitrogen 52 mg/dl (7-17); Calcium 10.2 mg/dl (8.4-10.2); Carbon Dioxide 21 mmol/L (22-30); Chloride 108 mmol/L (98-107); Estimated Creatinine Clearance 18 ml/min; Glucose 102 mg/dl (70-99); Sodium 142 mmol/L (135-145); eGFR 24.18
[2024-02-12] MEDS: KAYEXALATE SUSPENSION 30 GRAMS RECTAL (10:14)
--- NOTE | 2024-02-12 10:31 | W.PN.HOSP.TC ---
Addendum entered and electronically signed by Colton Pineda MD 02/12/24 10:59:
hyperkalemia- Kayaxalate enema
Original Note:
Today's Communication/Plan
-
Speech /PT/OT eval
Start Antihypertensives
OK for Tele
Need BIPAP HS and for discharge
Assessment / Plan
Assessment / Plan
83-year-old female brought in by EMS patient rolled out of bed and fell on the floor unclear how long she was on the floor when EMS arrived her sats were 75%
Head CT-no intracranial hemorrhage or fracture. Mild atrophy. Right posterolateral scalp lesion partially calcified 1.7 cm likely benign chest x-ray-COPD
Pneumonia versus atelectasis right base
ECHO-Normal left ventricular size with mild concentric hypertrophy and hyperdynamic systolic function. No regional wall motion abnormalities are seen. LV ejection fraction is left ventricular ejection fraction is greater than 80% with near
obliteration of the LV cavity, resulting in a resting mid cavity gradient is 42/15 mmHg.Normal right ventricular size and systolic function.Moderate left atrial dilation.Thickened mitral valve leaflets with mild mitral valve stenosis.Well seated,
normally functioning bioprosthetic valve.The IVC is mildly dilated and does not collapse. Right atrial pressure estimated at 12 mmHg.No evidence of pulmonary hypertension.
Compared to prior study of 03/09/2021, the left ventricle is now hyperdynamic with a resting intracavitary gradient, the IVC is now dilated with decreased inspiratory collapse and there is now mild mitral valve stenosis. Trans aortic valve
gradient has fallen from 16 mmHg to 10 mmHg.
CVS: S1-S2 normal
Chest: CTA B/L
Abdomen: Soft, NT / Bowel sounds present
Extremities: No edema
VENEREAL DISEASE CONTROL HEAD: awake and alert, oriented times 2. 5/5 strength B/L UE and LE. No facial droop.
# TME
Questionable Left-sided weakness-noted on admission. I do not see any deficits now.
# Acute respiratory distress, acute hypoxic respiratory failure
Asthma/COPD exacerbation
Chronic bronchitis
Chronic respiratory failure on home oxygen
Continue nebulizer
BiPAP- needs for discharge also
IV steroids
Wean oxygen as tolerated
Continue Zosyn for now-right base possible pneumonia
Speech evaluation
# Mildly elevated troponin-No ischemic myocardial injury
# Paroxysmal atrial fibrillation-does not seem to be on anticoagulation as outpatient. Not on any beta-blockers or calcium channel blockers
# Hyperkalemia-treated better. Follow. Hold lisinopril. Will not restart
# CKD stage III
# Anemia-due to CKD
# Rheumatoid arthritis-on prednisone 15 mg daily as outpatient it looks like from previous. On IV steroids now
# GERD-PPI
# Hyperlipidemia-continue statin when able to take p.o.
# Hypertension-on clonidine, amlodipine-to be started . Hold lisinopril. On as needed hydralazine now
# History aortic valve repair
# Arthritis/osteoporosis
# Ex-smoker
# DVT prophylaxis-subcutaneous heparin
D/W Friend at bed side
D/RN at bed side
D/w Public Information Specialist
D/w Case management.
Called Daughter, Son [place] answered again , said she is not available, says they both have POA per him. Updated . Code status DNI now.
Advised him to get us the POA and AD documents. He will get it ton us via pt's college and career counselor /friend.
Part of this note was created using voice recognition system. Occasional wrong word or��sound alike� substitutions may have inadvertently occurred due to the inherent limitations of voice recognition software. If noted kindly bring it to my
attention for correction.
time spent over 50 min
Anticipated Discharge: > 48 hours
Subjective/Interval History
-
Date of Service: February 12, 2024
Objective Data
-
Labs:
Laboratory Results
02/12/24 02/12/24 02/12/24
03:40 08:19 15:00
WBC 7.4
Hgb 9.1 L
Hct 29.1 L
Plt Count 179
Sodium 142 142 Pending
Potassium 6.3 H* 6.0 H Pending
Chloride 109 H 108 H Pending
Carbon Dioxide 20 L 21 L Pending
BUN 48 H 52 H Pending
Creatinine 2.0 H 2.0 H Pending
Glucose 104 H 102 H Pending
Calcium 9.6 10.2 Pending
Vital Signs:
Vital Signs
Temp Pulse Resp BP Pulse Ox
98.1 F 83 16 160/59 95
02/12/24 07:41 02/12/24 08:00 02/12/24 08:00 02/12/24 07:00 02/12/24 08:00
I&O
02/11/24 02/12/24 02/13/24
06:59 06:59 06:59
Intake Total 100 / 100
Output Total 300 / 300
Balance -200 / -200
[2024-02-12] MEDS: NORVASC PO ×2 (12:25→22:43)
[2024-02-12] MEDS: CATAPRES PO (12:25)
[2024-02-12] MEDS: ASPIR LOW (ENTERIC COATED) PO (12:25)
--- NOTE | 2024-02-12 12:30 | PTCARENOTE ---
Pt continues to rest quietly in bed. Kayexelate enema given as ordered. No new complaints received. Pt remains NPO following eval from Speech Therapy. Pt making frequent requests for 'something to drink' despite frequent reminders of NPO status and
reason for order. Frequent oral care provided. Family updated via phone by Dr Mckeon. No additional changes from previous assessment findings.
--- NOTE | 2024-02-12 13:04 | PTOTSP ---
Dysphagia Evaluation
Patient with acute on chronic risk factors for dysphagia and aspiration (i.e., admitted after unresponsive episode with acute respiratory failure and possible right sided PNA; baseline COPD/asthma, GERD, hiatal hernia, Schatzki's ring, esophageal
dysmotility) and current signs concerning for oral/pharyngeal dysphagia and possible aspiration. Objective assessment via video swallow study warranted.
Recommend:
1. NPO
2. Aspiration Risk Hydration Protocol - sips of water with supervision after oral care
3. Medications non-oral if able
4. Oral care 3x daily
5. Video swallow study
--- NOTE | 2024-02-12 15:38 | CM ---
CM reviewed chart and ADC>48 hours
SNF recommendations
Call with son in law/Radha
He is in agreement with SNF- PAC emailed to him at [email or web address]
He will provide SNF choices
He plans to fly in in two days to assist with LT care plannig noting pt is not returning home
He plans to set up her up at an assisted living facility locally
CM consult by pulm- pt will need bipap arranged on dc
Pt will need auth for SNF
Discharge Disposition- SNF pending auth with new bipap
[2024-02-12 15:51] LABS: Blood Urea Nitrogen 51 mg/dl (7-17); Calcium 9.9 mg/dl (8.4-10.2); Carbon Dioxide 21 mmol/L (22-30); Chloride 107 mmol/L (98-107); Estimated Creatinine Clearance 18 ml/min; Glucose 107 mg/dl (70-99); Potassium 5.7 mmol/L (3.5-5.1); Sodium 142 mmol/L (135-145); eGFR 24.18
--- NOTE | 2024-02-12 16:16 | PTCARENOTE ---
Pt OOB in chair following visit from PT/OT. Pt remains on O2 at 2l/min w/ POx 92-95%. Pt frequently blowing nose-clear drainage. Safe environment maintained. Pt's care-living supervisor from home here to visit and sat w/ pt. No additional changes from previous
assessment findings.
[2024-02-12] MEDS: APRESOLINE 10 MG IV (16:40)
[2024-02-12] MEDS: LIPITOR PO (18:07)
--- NOTE | 2024-02-12 23:08 | PTCARENOTE ---
Patient transferred to telemetry
--- NOTE | 2024-02-12 23:30 | PTCARENOTE ---
Pt. arrived to unit via wheelchair and ambulated with assistance to bed. Pt. oriented to unit and assessed by RN. Pt. remains on 2L O2 nasal cannula. Pt is forgetful, disoriented to time. Pt. resting comfortably in bed and has no further requests at
this time. Care ongoing.
[2024-02-12] MEDS: SYMBICORT 80/4.5 MCG INHALER INH (23:41)
--- NOTE | 2024-02-13 00:02 | PTCARENOTE ---
Addendum entered by Leia Sin RN 02/13/24 00:56:
This RN entered room after notified by PCT that pt felt short of breath. Pt. had removed her oxygen and pulse ox was found to be 70%. Oxygen was reapplied and pt now 96%. Education on purpose of oxygen provided. Care ongoing.
Original Note:
Pt refusing CPAP. Education provided by RT and this RN. Care ongoing.
[2024-02-13] MEDS: HEPARIN 5000 UNITS SC ×3 (01:14→17:15)
[2024-02-13 03:08] VITALS: BP 181/70
[2024-02-13] MEDS: APRESOLINE 10 MG IV (03:12)
[2024-02-13] MEDS: ZOSYN 50 IV ×4 (04:27→22:40)
[2024-02-13 05:49] VITALS: BMI 18.6
[2024-02-13 06:44] LABS: Hematocrit 32.4 % (37.0-47.0); Hemoglobin 10.4 g/dL (12.0-16.0); Mean Corp Hgb Conc. 32.1 g/dL (33.0-37.0); Mean Corpuscular Hgb 28.7 pg (27.0-31.0); Mean Corpuscular Volume 89.5 fL (81.0-99.0); Mean Platelet Volume 11.8 fL (7.4-10.4); Platelet Count 204 10^3/uL (130-400); Red Blood Cell Count 3.62 10^6/uL (4.20-5.40); Red Cell Dist. Width 15.2 % (11.5-14.5); White Blood Cell Count 13.5 10^3/uL (4.8-10.8)
[2024-02-13 07:07] LABS: Blood Urea Nitrogen 45 mg/dl (7-17); Calcium 9.9 mg/dl (8.4-10.2); Carbon Dioxide 24 mmol/L (22-30); Chloride 107 mmol/L (98-107); Estimated Creatinine Clearance 20 ml/min; Glucose 89 mg/dl (70-99); Potassium 4.9 mmol/L (3.5-5.1); Sodium 144 mmol/L (135-145); eGFR 29.39
[2024-02-13 07:50] VITALS: BP 179/66
[2024-02-13] MEDS: NEURONTIN 300 MG PO (09:10)
[2024-02-13] MEDS: ASPIR LOW (ENTERIC COATED) 81 MG PO (09:10)
[2024-02-13] MEDS: CATAPRES 0.1 MG PO (09:11)
[2024-02-13] MEDS: PROTONIX IV 40 MG IV (09:11)
[2024-02-13] MEDS: SINGULAIR 10 MG PO (09:11)
[2024-02-13] MEDS: NORVASC 5 MG PO ×2 (09:11→22:35)
[2024-02-13] MEDS: NSS (PRESERVATIVE FREE) 10 ML IV (09:11)
[2024-02-13] MEDS: DELTASONE 50 MG PO (09:11)
[2024-02-13] MEDS: DESENEX/MITRAZOL/ZEASORB 1 APPLIC TOPICAL (09:15)
[2024-02-13] MEDS: SYMBICORT 80/4.5 MCG INHALER 2 PUFF INH ×2 (09:21→19:33)
--- NOTE | 2024-02-13 10:08 | PTOTSP ---
Video Swallow Study
Summary: Patient presents with signs of mild oral and mild-moderate pharyngeal dysphagia with silent aspiration of thin liquids via cup that did not fully clear airway with cued coughing. See patient care note for full details of study.
Recommendations:
1. Regular, IDDSI Level 2 Mildly Thick Liquids via cup
2. Medications - whole and/or crushed in puree
3. Aspiration risk hydration protocol - unlimited single sips of water after oral care, in between meals, without food/medications
4. Strategies: upright to 90 degrees, small single sips/bites, slow rate, remain upright for 30 minutes after PO intake
5. Dysphagia therapy at the acute care level for education, instruction in compensations (i.e., teach chin tuck with thin liquids), and to determine if/when diet advancement appropriate.
[2024-02-13 11:18] VITALS: BP 98/65
--- NOTE | 2024-02-13 11:19 | W.PN.PUL3 ---
Today's Communication / Plan
-
Continue prednisone taper
Continue montelukast
Symbicort
Incentive spirometry
Acapella device
Will complete 5 days of antibiotics
Set up BiPAP prior to discharge
Diuresis per primary team
Hyperkalemia management per primary
Assessment
-
Patient is an 83-year-old female with previous history of ACOS, hypertension, chronic kidney disease, status post AVR 2012 at [place] presenting to ER following unresponsiveness at home. She was found down by EMS after not feeling well for a
couple days prior to admission. A personal friend gives history as patient could not elaborate. Unclear how long she was found down, she was noted to be hypoxic and wheezing on initial assessments. She is placed on oxygen. Chest x-ray is clear.
ABG performed showing acute CO2 retention placed on BiPAP. She is admitted to IMU.
Acute hypoxic respiratory failure
Acute hypercarbic respiratory failure on BiPAP, ABG .
Unresponsive at home, found down by EMS
Leukocytosis
Acute on chronic anemia
Hyperkalemia
Acute kidney injury, 1.8 (BL 1.3-1.5)
Volume overload, proBNP 3010
Conditions present [employer]
Small bowel obstruction, status post left inguinal incarcerated hernia status post repair with mesh 12/18/17
COPD/ Asthma, followed at [facility] before, now with Dr Walters/Stu
Severe obstructive physiology, FEV1 0.83 L
Normal alpha1/igG levels, IgE 715/RAST panel; prior history of bronch with normal cell count/+MRSA/+PCR mycoplasma
Diffuse chronic sinusitis
RA
CKD
GERD/HH/Schatzki's ring dysmotility that was moderately severe and high-grade spontaneous reflux, positive pH probe when recumbent
HTN
HLD
Anxiety
Osteoporosis
B/L total hip replacements
AVR 04/07/[address] [facility] [address] Santos
ZAINA
Plan
Currently on 2 L nasal cannula, continue to wean down as able.
Not bronchospastic on exam 02/13/2024.
Home oxygen assessment prior to discharge
Reportedly using PRN O2 at home.
Prior history of lung disease is noted: Asthma/COPD
Had seen Dr. Connell and Dr. Walters in the past, she does not recall the last time she had seen them
Notably had severe obstructive lung disease with concern for allergic rhinitis-positive IgE/RAST panel in the past
Status post bronchoscopy in the past with MRSA and PCR positive mycoplasma.
Chest x-ray noted: Radiology reports possible right lower lobe abnormality. Not impressive to my view.
Cannot rule out aspiration pneumonitis.
Barium swallow results noted with microaspiration.
Continue with speech pathology follow-up on recommendation
-
Not bronchospastic on exam. 02/13/2020 for possible acute exacerbation improving.
Continue Symbicort
Montelukast
Prednisone, decrease by 10 mg every 72 hours to off.
Albuterol nebulizer as needed
Incentive spirometer
Acapella device as able
Patient has history of obstructive sleep apnea.
Set up home BIPAP to be used at bedtime given hypercapnia.
Acute on chronic hypercapnic respiratory failure. ABG from 2018 with pCO2 of 69.
Initial head CT negative, she does not recall events.
Underlying dementia may be present as well
Mental status improved
Continue nocturnal BiPAP and as needed.
MELLY and CKD history
HyperK noted-management per primary team.
WBC noted-Improved. Currently afebrile
Urine culture with E. coli 02/11/2024
UA not impressive.
On [id number] aspiration pneumonitis. Minimal right lower lobe abnormality on chest x-ray. Will complete only 5 days of antibiotics.
Blood culture negative
Legionella negative
MRSA screening negative
Speech pathology/speech modified barium swallow 02/13/2024 noted.
Some degree of silent aspiration.
Modified diet
Aspiration precaution
Prior ECHO results are reviewed indicating stable AVR
Can repeat testing
proBNP >3000 suggestive volume component as well
Diuresis per team
Reasonable to discuss GOC, code status
PT/OT eval eventually
Pulmonary will continue to follow
Recommend outpatient pulmonary follow-up after discharge, information left in the chart.

Diagnostic Data
Chest X-Ray: 02/11/24- 1. Mild hyperinflation, suggestive of COPD.
2. Hazy opacity at the right lung base, which may represent vascular crowding due to COPD or subtle pneumonia.
CT Scan: CAP 01/24/24- There is no evidence of soft tissue mass over the posterior upper chest. No CT finding that would correspond to the findings seen on recent chest radiograph. Minimal dependent atelectasis in the posterior and inferior lower
lobes. 2-mm subpleural nodule in the posterior right lower lobe. This is compatible with a benign nodule and no further follow-up is felt to be necessary.
Small central hiatal hernia. Cholelithiasis with no evidence of gallbladder wall thickening or adjacent edema. Colonic diverticula with no CT evidence of diverticulitis. Changes involving both shoulders and the right hip joint, highly suggestive of
rheumatoid arthritis. Status-post left hip replacement with resultant streak artifact.
Echo: 2012-LV normal in size, mild concentric LVH. New septal paradox is noted. Moderate diastolic dysfunction, EF 70%, biological AV prosthesis. AV peak gradient 20.6, AV mean gradient 11
PFT's: FEV1 1.28L, FVC 2.03L
Reports and relevant images were personally reviewed.
Total time spent on this encounter __50__ includes review of history, physical exam, medications, laboratory data, personal review of imaging, extensive review of outpatient records, discussion with care team and respiratory therapy.
Subjective Data
-
Date of Service:
Date of Service: February 13, 2024
Chief Complaint: Pulmonary Follow Up
Objective Data
Data Reviewed
Vital Signs / I&O / Oxygen:
Vital Signs
Temp Pulse Resp BP Pulse Ox
97.7 F 68 17 98/65 97
02/13/24 11:18 02/13/24 11:18 02/13/24 11:18 02/13/24 11:18 02/13/24 11:18
Intake and Output
02/12/24 02/13/24 02/14/24
06:59 06:59 06:59
Intake Total 100 / 100 150 / 150
Output Total 300 / 300 400 / 400
Balance -200 / -200 -250 / -250
SaO2 97
Nasal Cannula flow liters per 2
minute
Physical Exam
General: Comfortable and Other (NAD)
HEENT: Normocephalic, Anicteric and Moist Mucous Membranes
Cardiovascular: S1-S2 and Regular Rhythm
Respiratory: Clear and Non-Labored Respirations
GI: Soft, Non Distended and Non Tender
Neurology: Awake, Alert and No Motor Deficits
Skin: Warm, Dry and Good Color
Labs/Micro/Reports
Lab Data
02/13/24 06:29
02/13/24 06:29
Microbiology
02/11/24 04:06 Urine Urine Culture - Final
Escherichia coli
02/11/24 10:57 Nose MRSA Screen - Final
No Methicillin Resistant Staphylococcus aureus isolated.
02/11/24 04:06 Urine Legionella Urinary Antigen - Final
Negative for Legionella pneumophila Serogroup 1 antigen.
A negative result does not rule out the possiblity of
Legionella infection due to other serogroups or species of
Legionella. Clinical correlation is recommended.
--- NOTE | 2024-02-13 12:41 | W.PN.HOSP.TC ---
Today's Communication/Plan
-
Continue with steroid taper, bronchodilators, Acapella, BiPAP nightly
Continue IV antibiotics, plan for 5 days total
Wean oxygen as able, plan for home O2 eval
Assessment / Plan
Assessment / Plan
#Acute on chronic hypoxemic respiratory failure
#Asthma/COPD with exacerbation
#Suspected aspiration pneumonitis
-Has chronic respiratory failure, 2 L home oxygen as needed currently in the context of COPD
-Suspect multi factorial cause to her worsening respiratory status, likely from exacerbated obstructive lung disease as well as aspiration
-Barium swallow here did show signs of microaspiration; initially in ICU level care
-Has been down titrated to 2 L of oxygen on steroid, Symbicort, diuretic course
-Pulmonology following
Plan
-Continue with prednisone taper
-Continue with montelukast, Symbicort, incentive spirometry
-Continue with Acapella device, start aspiration precaution
-Continue with IV Zosyn, plan for 5-day course
-Trend BMP, consider further Lasix dosing by volume status
-Plan for BiPAP at discharge and home O2 evaluation
#Toxic metabolic encephalopathy
-Secondary to hypoxemia, possible aspiration event
-Resolved
#Nonischemic myocardial injury
-Mildly elevated troponin with flat trend, no ECG change or chest pain
#Hyperkalemia
-Resolved with discontinuation of lisinopril
#CKD stage III
-Baseline creatinine near 1.4-1.6
-Likely associated with anemia; no known bone mineral disease or acidemia
-Did have slightly elevated creatinine initially though most recent creatinine near baseline
-Will continue to trend BMP
#Paroxysmal atrial fibrillation
-Not currently on rate controlling agents or anticoagulants
-Heart rate sounded regular, WNL this morning
#Rheumatoid arthritis
#Chronic steroid use
-Home regimen includes prednisone 15 mg daily
-No known associated coronary disease or ILD
-No current signs of flare
#GERD
-No known Reyes's esophagus or erosive disease
-Home regimen includes omeprazole 20 mg daily
#Dyslipidemia
-No known history of ASCVD, Home regimen includes high intensity statin
#Hypertension
-No known history of hypertensive systemic disease
-Home regimen included lisinopril, clonidine, amlodipine
-Lisinopril held as above for hyperkalemia
-Blood pressure has been soft despite lisinopril held
#S/P TAVR
#Former smoker
DVT prophylaxis: Heparin
Diet: Mildly thick/nectar thick liquids, regular, meds in pur�e
CODE STATUS: DNI
Anticipated Discharge: 24 - 48 hours
Subjective/Interval History
-
Date of Service: February 13, 2024
Seen and examined at the bedside today. No acute events overnight. AFVSS this morning on 2 L oxygen
She seemed confused, cannot recall how she ended up in the hospital. States she feels well this morning
She denies chest pain, shortness of breath, fevers or chills, GI upset, urinary issues, abnormal bleeding or bruising, paresthesias or weakness
Objective Data
-
Labs:
Laboratory Results
02/13/24
06:29
WBC 13.5 H
Hgb 10.4 L
Hct 32.4 L
Plt Count 204
Sodium 144
Potassium 4.9
Chloride 107
Carbon Dioxide 24
BUN 45 H
Creatinine 1.7 H
Glucose 89
Calcium 9.9
Vital Signs:
Vital Signs
Temp Pulse Resp BP Pulse Ox
97.7 F 68 17 98/65 97
02/13/24 11:18 02/13/24 11:18 02/13/24 11:18 02/13/24 11:18 02/13/24 11:18
I&O
02/12/24 02/13/24 02/14/24
06:59 06:59 06:59
Intake Total 100 / 100 150 / 150
Output Total 300 / 300 400 / 400
Balance -200 / -200 -250 / -250
Review of Systems
-
History Source: Patient
All other systems: Reviewed and negative
Physical Exam
-
General: No Apparent Distress, Comfortable and Other (Thin and frail female)
HEENT: Normocephalic, Atraumatic, Moist Mucous Membranes and Anicteric
Respiratory: Clear to Auscultation and Non Labored Respirations; Negative Wheezes, Rales, Rhonchi or Accessory Resp Muscle Use
Cardiac: Regular Rhythm, S1/S2 and Murmur; Negative Rub, JVD or Gallop
GI: Soft, Nontender, Nondistended and Normal Bowel Sounds
Musculoskeletal: No Clubbing, No Cyanosis and No Edema
Skin: Warm, Dry and Normal Turgor; Negative Rash
Neuro: AO x 3, Nonfocal/Grossly Intact and Central Nerve's Intact
Data Reviewed
-
Labs: Labs Reviewed by me and Discussed with Patient
[2024-02-13 16:00] VITALS: BP 161/68
[2024-02-13] MEDS: LIPITOR 80 MG PO (17:15)
[2024-02-13 19:20] VITALS: BP 158/68
[2024-02-13] MEDS: DESENEX/MITRAZOL/ZEASORB TOPICAL (22:40)
[2024-02-14] VITALS (8 sets, daily range): BP systolic 145–177; BP diastolic 59–79; PULSE 69; O2SAT 98; BMI 18.5
[2024-02-14] MEDS: APRESOLINE 10 MG IV (00:49)
[2024-02-14] MEDS: HEPARIN 5000 UNITS SC ×3 (04:42→17:57)
[2024-02-14] MEDS: ZOSYN 50 IV ×4 (04:42→22:13)
[2024-02-14 07:21] LABS: % Basophils 0.2 % (0-2); % Eosinophils 9.2 % (0-6); % Immature Granulocytes 0.2 % (0-0.5); % Lymphocytes 14.5 % (20.5-51.1); % Monocytes 8.4 % (1.7-9.3); % Neutrophils 67.5 % (42.2-75.2); Absolute Lymphocytes 1.5 10^3/uL (1.2-3.4); Absolute Monocytes 0.9 10^3/uL (0.1-0.6); Hematocrit 32.8 % (37.0-47.0); Hemoglobin 10.6 g/dL (12.0-16.0); Mean Corp Hgb Conc. 32.3 g/dL (33.0-37.0); Mean Corpuscular Hgb 28.7 pg (27.0-31.0); Mean Corpuscular Volume 88.9 fL (81.0-99.0); Nucleated Red Blood Cells % 0 %; Platelet Count 207 10^3/uL (130-400); Red Blood Cell Count 3.69 10^6/uL (4.20-5.40); Red Cell Dist. Width 14.8 % (11.5-14.5); White Blood Cell Count 10.4 10^3/uL (4.8-10.8)
[2024-02-14] MEDS: SYMBICORT 80/4.5 MCG INHALER 2 PUFF INH ×2 (07:46→19:46)
[2024-02-14 08:21] LABS: Blood Urea Nitrogen 46 mg/dl (7-17); Calcium 9.5 mg/dl (8.4-10.2); Carbon Dioxide 24 mmol/L (22-30); Chloride 104 mmol/L (98-107); Estimated Creatinine Clearance 25 ml/min; Glucose 87 mg/dl (70-99); Potassium 5.1 mmol/L (3.5-5.1); Sodium 140 mmol/L (135-145)
[2024-02-14] MEDS: SINGULAIR 10 MG PO (09:46)
[2024-02-14] MEDS: DELTASONE 50 MG PO (09:46)
[2024-02-14] MEDS: CATAPRES 0.1 MG PO (09:46)
[2024-02-14] MEDS: PROTONIX 40 MG PO (09:47)
[2024-02-14] MEDS: NEURONTIN 300 MG PO (09:47)
[2024-02-14] MEDS: NORVASC 5 MG PO ×2 (09:47→22:13)
[2024-02-14] MEDS: ASPIR LOW (ENTERIC COATED) 81 MG PO (09:47)
[2024-02-14] MEDS: DESENEX/MITRAZOL/ZEASORB 1 APPLIC TOPICAL ×2 (09:56→22:16)
--- NOTE | 2024-02-14 10:26 | W.PN.HOSP.TC ---
Today's Communication/Plan
-
-Transition Zosyn to Augmentin to complete 5-day course
-Continue with prednisone taper and bronchodilators
-Acapella device, BiPAP nightly, aspiration precautions
-Home oxygen evaluation at [facility]
Assessment / Plan
Assessment / Plan
#Acute on chronic hypoxemic respiratory failure
#Asthma/COPD with exacerbation
#Suspected aspiration pneumonitis
-Has chronic respiratory failure, 2 L home oxygen as needed currently in the context of COPD
-Suspect multi factorial cause to her worsening respiratory status, likely from exacerbated obstructive lung disease as well as aspiration
-Barium swallow here did show signs of microaspiration; initially in ICU level care
-Has been down titrated to 2 L of oxygen on steroid, Symbicort, diuretic course
-Pulmonology following
Plan
-Continue with prednisone taper over the next 10 days
-Continue with montelukast, Symbicort, incentive spirometry
-Continue with Acapella device, aspiration precautions
-Transition IV Zosyn to oral Augmentin to complete 5-day course
-Trend BMP, consider further Lasix dosing by volume status
-Plan for BiPAP at discharge and home O2 evaluation
#Toxic metabolic encephalopathy
-Secondary to hypoxemia, possible aspiration event
-Resolved
#Nonischemic myocardial injury
-Mildly elevated troponin with flat trend, no ECG change or chest pain
#Hyperkalemia
-Resolved with discontinuation of lisinopril
#MELLY on CKD stage III
-Baseline creatinine near 1.4-1.6; creatinine was >2, prerenal likely from diuresis/SHANKAR inhibitor
-At baseline does not have any associated complications such as anemia, acidemia, bone mineral disease
-Currently holding SHANKAR inhibitor and diuretics, will likely require neither at discharge
-Renal function is back to near baseline today
#Paroxysmal atrial fibrillation
-Not currently on rate controlling agents or anticoagulants
-Heart rate sounded regular, WNL this morning
#Rheumatoid arthritis
#Chronic steroid use
-Home regimen includes prednisone 15 mg daily
-No known associated coronary disease or ILD
-No current signs of flare
#GERD
-No known Reyes's esophagus or erosive disease
-Home regimen includes omeprazole 20 mg daily
#Dyslipidemia
-No known history of ASCVD, Home regimen includes high intensity statin
#Hypertension
-No known history of hypertensive systemic disease
-Home regimen included lisinopril, clonidine, amlodipine
-Lisinopril held as above for hyperkalemia
-Blood pressure has been soft despite lisinopril held
#S/P TAVR
#Former smoker
DVT prophylaxis: Heparin
Diet: Mildly thick/nectar thick liquids, regular, meds in pur�e
CODE STATUS: DNI
Anticipated Discharge: Within 24 hours
Subjective/Interval History
-
Date of Service: February 14, 2024
Seen and examined at bedside. No acute events overnight. AFVSS this morning.
She states she feels fairly well, does have some confusion at times but generally no complaints
She denies chest pain, shortness of breath, fevers or chills, GI issues, urinary issues, abnormal bleeding or bruising, paresthesias or weakness.
Objective Data
-
Labs:
Laboratory Results
02/14/24
07:09
WBC 10.4
Hgb 10.6 L
Hct 32.8 L
Plt Count 207
Sodium 140
Potassium 5.1
Chloride 104
Carbon Dioxide 24
BUN 46 H
Creatinine 1.4 H
Glucose 87
Calcium 9.5
Vital Signs:
Vital Signs
Temp Pulse Resp BP Pulse Ox
98.0 F 59 16 159/62 98
02/14/24 07:48 02/14/24 07:48 02/14/24 07:48 02/14/24 07:48 02/14/24 07:48
I&O
02/13/24 02/14/24 02/15/24
06:59 06:59 06:59
Intake Total 150 / 150 480 / 480 100 / 100
Output Total 400 / 400
Balance -250 / -250 480 / 480 100 / 100
Review of Systems
-
History Source: Patient
All other systems: Reviewed and negative
Physical Exam
-
General: No Apparent Distress, Comfortable and Other (Thin and frail female)
HEENT: Normocephalic, Atraumatic and Moist Mucous Membranes
Respiratory: Clear to Auscultation and Non Labored Respirations; Negative Wheezes, Rales or Rhonchi
Cardiac: Regular Rhythm, S1/S2 and Murmur; Negative Rub, JVD or Gallop
GI: Soft, Nontender, Nondistended and Normal Bowel Sounds
Musculoskeletal: No Clubbing, No Cyanosis and No Edema
Skin: Warm and Dry; Negative Rash
Neuro: AO x 3, Nonfocal/Grossly Intact and Central Nerve's Intact
Psych: Calm
Data Reviewed
-
Labs: Labs Reviewed by me and Discussed with Patient
--- NOTE | 2024-02-14 12:08 | CM ---
Addendum entered by ORION Whalen 02/14/24 15:32:
Received call back from Sheree at [facility] who stated that they would prefer that she go to their SNF first. # For report [phone] and fax [phone]
Will work on obtaining auth for transfer.
W/C van fee discussed with patient's son in law and he is agreeable to whatever the cost.
Original Note:
Reviewed chart, spoke with attending who stated that patient may be medically cleared for discharge. Placed a call to patient's son in law, Radha, who stated that he would like for patient to transition right to her new [facility] from ([facility]).
Patient's son in law stated that he was advised by their admissions rep, Sendy, that they do have a skilled facility on site if needed. She relayed that for assisted living her information is: [phone] and fax [phone]. She
transferred call to their health center so that admissions could relay potential bed availability. An access services representative named, Sheree, picked up and stated that if patient needs SNF, they have bed availability today. She requested that all
clinical be faxed to, . Her phone number is [phone].
Faxed all clinical to Sheree for her review. If she can accept will start authorization process.
Will await her review and return call.
Plan: Case management will continue to follow and assist with discharge planning. SNF vrs ROSIE at [facility] in [place],
--- NOTE | 2024-02-14 13:27 | W.PN.PUL3 ---
Today's Communication / Plan
-
continue antibiotics total of 5 days
Prednisone taper
Inhalers
Incentive spirometer
Nocturnal BiPAP
Avoid sedatives
Diuresis as able
Hopefully discharge in the next 24 hours
Assessment
-
Patient is an 83-year-old female with previous history of ACOS, hypertension, chronic kidney disease, status post AVR 2012 at [place] presenting to ER following unresponsiveness at home. She was found down by EMS after not feeling well for a
couple days prior to admission. A personal friend gives history as patient could not elaborate. Unclear how long she was found down, she was noted to be hypoxic and wheezing on initial assessments. She is placed on oxygen. Chest x-ray is clear.
ABG performed showing acute CO2 retention placed on BiPAP. She is admitted to IMU.
Acute hypoxic respiratory failure
Acute hypercarbic respiratory failure on BiPAP, ABG
Unresponsive at home, found down by EMS
Leukocytosis
Acute on chronic anemia
Hyperkalemia
Acute kidney injury, 1.8 (BL 1.3-1.5)
Volume overload, proBNP 3010
Conditions present SENIOR SVP
Small bowel obstruction, status post left inguinal incarcerated hernia status post repair with mesh 12/18/17
COPD/ Asthma, followed at [facility] before, now with Dr Walters/Stu
Severe obstructive physiology, FEV1 0.83 L
Normal alpha1/igG levels, IgE 715/RAST panel; prior history of bronch with normal cell count/+MRSA/+PCR mycoplasma
Diffuse chronic sinusitis
RA
CKD
GERD/HH/Schatzki's ring dysmotility that was moderately severe and high-grade spontaneous reflux, positive pH probe when recumbent
HTN
HLD
Anxiety
Osteoporosis
B/L total hip replacements
AVR 04/07/13 at [facility] with Dr Santos
ZAINA
Plan
Currently on 2 L nasal cannula, continue to wean down as able.
Not bronchospastic on exam 02/13/2024.
Reportedly using PRN O2 at home.
Prior history of lung disease is noted: Asthma/COPD
Had seen Dr. Connell and Dr. Walters in the past, she does not recall the last time she had seen them
Notably had severe obstructive lung disease with concern for allergic rhinitis-positive IgE/RAST panel in the past
Status post bronchoscopy in the past with MRSA and PCR positive mycoplasma.
Chest x-ray noted: Radiology reports possible right lower lobe abnormality. Not impressive to my view.
Cannot rule out aspiration pneumonitis.
Barium swallow results noted with microaspiration.
Continue with speech pathology follow-up on recommendation
-
Not bronchospastic on exam. 02/14/2020 for possible acute exacerbation improving.
Continue Symbicort
Montelukast
Prednisone, decrease by 10 mg every 72 hours to off.
Albuterol nebulizer as needed
Incentive spirometer
Acapella device as able
Patient has history of obstructive sleep apnea.
Set up home BIPAP to be used at bedtime given hypercapnia.
Acute on chronic hypercapnic respiratory failure. ABG from 2018 with pCO2 of 69.
Initial head CT negative, she does not recall events.
Underlying dementia may be present as well
Mental status improved 5 and back to baseline
Continue nocturnal BiPAP and as needed. should be discharged on this, patient agreeable.
MELLY and CKD history
HyperK noted-management per primary team.
WBC noted-Improved. Currently afebrile
Urine culture with E. coli 02/11/2024
UA not impressive.
On ase-hcew-hujodwzn aspiration pneumonitis. Minimal right lower lobe abnormality on chest x-ray. Will complete only 5 days of antibiotics-Transitioned to Augmentin.
Blood culture negative
Legionella negative
MRSA screening negative
Speech pathology/speech modified barium swallow 02/13/2024 noted.
Some degree of silent aspiration.
Modified diet
Aspiration precaution
Prior ECHO results are reviewed indicating stable AVR
Can repeat testing
proBNP >3000 suggestive volume component as well
Diuresis per team As able.
Reasonable to discuss GOC, code status
PT/OT
Pulmonary will continue to follow
I agree with discharge planning hopefully tomorrow to intermediate facility
Recommend outpatient pulmonary follow-up after discharge, information left in the chart.

Diagnostic Data
Chest X-Ray: 02/11/24- 1. Mild hyperinflation, suggestive of COPD.
2. Hazy opacity at the right lung base, which may represent vascular crowding due to COPD or subtle pneumonia.
CT Scan: CAP 01/24/24- There is no evidence of soft tissue mass over the posterior upper chest. No CT finding that would correspond to the findings seen on recent chest radiograph. Minimal dependent atelectasis in the posterior and inferior lower
lobes. 2-mm subpleural nodule in the posterior right lower lobe. This is compatible with a benign nodule and no further follow-up is felt to be necessary.
Small central hiatal hernia. Cholelithiasis with no evidence of gallbladder wall thickening or adjacent edema. Colonic diverticula with no CT evidence of diverticulitis. Changes involving both shoulders and the right hip joint, highly suggestive of
rheumatoid arthritis. Status-post left hip replacement with resultant streak artifact.
Echo: 2012-LV normal in size, mild concentric LVH. New septal paradox is noted. Moderate diastolic dysfunction, EF 70%, biological AV prosthesis. AV peak gradient 20.6, AV mean gradient 11
PFT's: FEV1 1.28L, FVC 2.03L
Reports and relevant images were personally reviewed.
Total time spent on this encounter __50__ includes review of history, physical exam, medications, laboratory data, personal review of imaging, extensive review of outpatient records, discussion with care team and respiratory therapy.
Subjective Data
-
Date of Service:
Date of Service: February 14, 2024
Chief Complaint: Pulmonary Follow Up
Subjective:
The patient states that she feels better.
continues to feel debilitated. Patient is forgetful.
Denies hemoptysis
Denies significant phlegm production
Tolerating BiPAP
Review of Systems
Cardiopulmonary: Dyspnea (n), Cough (n) and Chest Pain (n)
GI: Abdominal Pain (n) and Nausea (n)
Objective Data
Data Reviewed
Vital Signs / I&O / Oxygen:
Vital Signs
Temp Pulse Resp BP Pulse Ox
98.5 F 67 17 152/59 96
02/14/24 11:43 02/14/24 11:43 02/14/24 11:43 02/14/24 11:43 02/14/24 11:43
Intake and Output
02/13/24 02/14/24 02/15/24
06:59 06:59 06:59
Intake Total 150 / 150 480 / 480 100 / 100
Output Total 400 / 400
Balance -250 / -250 480 / 480 100 / 100
SaO2 96
Nasal Cannula flow liters per 2
minute
Physical Exam
General: Comfortable and Other (NAD)
HEENT: Normocephalic, Anicteric and Moist Mucous Membranes
Cardiovascular: S1-S2 and Regular Rhythm
Respiratory: Clear and Non-Labored Respirations
GI: Soft, Non Distended and Non Tender
Neurology: Awake, Alert and No Motor Deficits
Skin: Warm, Dry and Good Color
Labs/Micro/Reports
Lab Data
02/14/24 07:09
02/14/24 07:09
Microbiology
02/11/24 04:06 Urine Urine Culture - Final
Escherichia coli
02/11/24 10:57 Nose MRSA Screen - Final
No Methicillin Resistant Staphylococcus aureus isolated.
02/11/24 04:06 Urine Legionella Urinary Antigen - Final
Negative for Legionella pneumophila Serogroup 1 antigen.
A negative result does not rule out the possiblity of
Legionella infection due to other serogroups or species of
Legionella. Clinical correlation is recommended.
[2024-02-14] MEDS: LIPITOR 80 MG PO (17:57)
--- NOTE | 2024-02-14 23:45 | PTCARENOTE ---
PT with an episode of sinus tachy to the 150s and SENIOR RISK ANALYST notified. EKG completed showed ST depression. SENIOR RISK ANALYST stated possible side effect os hydralazine. PT remains asymptomatic.
[2024-02-15] MEDS: HEPARIN 5000 UNITS SC ×2 (02:03→10:41)
[2024-02-15] MEDS: ZOSYN 50 IV (03:07)
[2024-02-15 06:53] LABS: % Basophils 0.1 % (0-2); % Eosinophils 2.5 % (0-6); % Immature Granulocytes 0.2 % (0-0.5); % Lymphocytes 15.9 % (20.5-51.1); % Monocytes 8.9 % (1.7-9.3); % Neutrophils 72.4 % (42.2-75.2); Absolute Eosinophils 0.2 10^3/uL (0-0.7); Absolute Lymphocytes 1.3 10^3/uL (1.2-3.4); Absolute Monocytes 0.7 10^3/uL (0.1-0.6); Absolute Neutrophils 5.9 10^3/uL (1.4-6.5); Hemoglobin 10.2 g/dL (12.0-16.0); Mean Corp Hgb Conc. 32.9 g/dL (33.0-37.0); Mean Corpuscular Hgb 29.7 pg (27.0-31.0); Mean Corpuscular Volume 90.1 fL (81.0-99.0); Mean Platelet Volume 12.5 fL (7.4-10.4); Nucleated Red Blood Cells % 0 %; Platelet Count 175 10^3/uL (130-400); Red Blood Cell Count 3.44 10^6/uL (4.20-5.40); Red Cell Dist. Width 14.8 % (11.5-14.5); White Blood Cell Count 8.2 10^3/uL (4.8-10.8)
[2024-02-15 07:06] LABS: Blood Urea Nitrogen 52 mg/dl (7-17); Calcium 8.9 mg/dl (8.4-10.2); Carbon Dioxide 24 mmol/L (22-30); Chloride 105 mmol/L (98-107); Estimated Creatinine Clearance 20 ml/min; Glucose 98 mg/dl (70-99); Potassium 4.6 mmol/L (3.5-5.1); Sodium 139 mmol/L (135-145); eGFR 29.39
[2024-02-15 07:19] VITALS: BP 161/65
[2024-02-15] MEDS: SYMBICORT 80/4.5 MCG INHALER 2 PUFF INH (07:41)
[2024-02-15] MEDS: ASPIR LOW (ENTERIC COATED) 81 MG PO (08:28)
[2024-02-15] MEDS: PROTONIX 40 MG PO (08:28)
[2024-02-15] MEDS: NEURONTIN 300 MG PO (08:28)
[2024-02-15] MEDS: SINGULAIR 10 MG PO (08:28)
[2024-02-15] MEDS: AUGMENTIN 875 MG/125 MG 1 TABLET PO (08:28)
[2024-02-15] MEDS: LEXAPRO 5 MG PO (08:28)
[2024-02-15] MEDS: DESENEX/MITRAZOL/ZEASORB 1 APPLIC TOPICAL (08:29)
[2024-02-15] MEDS: NORVASC 5 MG PO (08:29)
[2024-02-15] MEDS: CATAPRES 0.1 MG PO (08:29)
--- NOTE | 2024-02-15 09:10 | CM ---
Addendum entered by ORION Whalen 02/15/24 09:23:
Received determination/approval from [facility]ano Valdivia ([facility]), Dates 02/14-02/18 auth [id number] NRD 02/18 Concurrent review should be called to [phone].
Messaged Sheree in admissions above information.
Original Note:
Reviewed chart, placed a call to [facility] and spoke with [facility] clinical reviewer, reviewed clinical. She stated that she will return call to with determination.
Placed a call to Sheree in admissions to update, however had to leave a voice mail message. Requested return call.
Received call from Radha, patient's son in law who stated that he will be unavailable today from 9-12:30 and to defer to family friend, Zonia [phone]
Plan: Case management will continue to follow and assist with discharge planning. [facility]
[2024-02-15 11:05] LABS: COVID-19 Antigen Negative (Negative)
--- NOTE | 2024-02-15 11:16 | W.PN.HOSP.TC ---
Today's Communication/Plan
-
Discharge to SNF
Assessment / Plan
Assessment / Plan
#Acute on chronic hypoxemic respiratory failure
#Asthma/COPD with exacerbation
#Suspected aspiration pneumonitis
-Has chronic respiratory failure, 2 L home oxygen as needed currently in the context of COPD
-Suspect multi factorial cause to her worsening respiratory status, likely from exacerbated obstructive lung disease as well as aspiration
-Barium swallow here did show signs of microaspiration; initially in ICU level care
-Has been down titrated to 2 L of oxygen on steroid, Symbicort, diuretic course
-Pulmonology following
Plan
-Continue with prednisone taper over the next 10 days
-Continue with montelukast, Symbicort, incentive spirometry
-Continue with Acapella device, aspiration precautions
-Transition IV Zosyn to oral Augmentin to complete 5-day course
-Trend BMP, consider further Lasix dosing by volume status
-Plan for BiPAP at discharge and home O2 evaluation at SNF
#Toxic metabolic encephalopathy
-Secondary to hypoxemia, possible aspiration event
-Resolved
#Nonischemic myocardial injury
-Mildly elevated troponin with flat trend, no ECG change or chest pain
#Hyperkalemia
-Resolved with discontinuation of lisinopril
#MELLY on CKD stage III
-Baseline creatinine near 1.4-1.6; creatinine was >2, prerenal likely from diuresis/SHANKAR inhibitor
-At baseline does not have any associated complications such as anemia, acidemia, bone mineral disease
-Currently holding SHANKAR inhibitor and diuretics, will likely require neither at discharge
-Renal function is back to near baseline today
#Paroxysmal atrial fibrillation
-Not currently on rate controlling agents or anticoagulants
-Heart rate sounded regular, WNL this morning
#Rheumatoid arthritis
#Chronic steroid use
-Home regimen includes prednisone 15 mg daily
-No known associated coronary disease or ILD
-No current signs of flare
#GERD
-No known Reyes's esophagus or erosive disease
-Home regimen includes omeprazole 20 mg daily
#Dyslipidemia
-No known history of ASCVD, Home regimen includes high intensity statin
#Hypertension
-No known history of hypertensive systemic disease
-Home regimen included lisinopril, clonidine, amlodipine
-Lisinopril held as above for hyperkalemia
-Blood pressure has been soft despite lisinopril held
#S/P TAVR
#Former smoker
DVT prophylaxis: Heparin
Diet: Mildly thick/nectar thick liquids, regular, meds in pur�e
CODE STATUS: DNI
Anticipated Discharge: Today
Subjective/Interval History
-
Date of Service: February 15, 2024
Seen and examined at the bedside. No acute events overnight. AFVSS this morning
Pending authorization for SNF
She denies all acute complaints
Objective Data
-
Labs:
Laboratory Results
02/15/24
06:28
WBC 8.2
Hgb 10.2 L
Hct 31.0 L
Plt Count 175
Sodium 139
Potassium 4.6
Chloride 105
Carbon Dioxide 24
BUN 52 H
Creatinine 1.7 H
Glucose 98
Calcium 8.9
Vital Signs:
Vital Signs
Temp Pulse Resp BP Pulse Ox
98.0 F 63 16 168/66 99
02/15/24 07:19 02/15/24 08:29 02/15/24 07:40 02/15/24 08:29 02/15/24 07:19
I&O
02/14/24 02/15/24 02/16/24
06:59 06:59 06:59
Intake Total 480 / 480 760 / 760
Balance 480 / 480 760 / 760
Review of Systems
-
History Source: Patient
All other systems: Reviewed and negative
Physical Exam
-
General: No Apparent Distress, Comfortable and Other (Thin and frail appearing)
HEENT: Normocephalic, Atraumatic, Moist Mucous Membranes and Anicteric
Respiratory: Clear to Auscultation and Non Labored Respirations; Negative Wheezes, Rales or Rhonchi
Cardiac: Regular Rhythm, S1/S2 and Murmur; Negative Rub, JVD or Gallop
GI: Soft, Nontender, Nondistended and Normal Bowel Sounds
Musculoskeletal: No Clubbing, No Cyanosis, No Edema and Other (No gross deformity)
Skin: Warm and Dry; Negative Rash
Neuro: AO x 3, Nonfocal/Grossly Intact and Central Nerve's Intact
Psych: Calm
--- NOTE | 2024-02-15 11:48 | W.PN.PUL3 ---
Today's Communication / Plan
-
For DC today.
Will sign off
Outpx pulmonary follow up
Assessment
-
Patient is an 83-year-old female with previous history of ACOS, hypertension, chronic kidney disease, status post AVR 2012 at [place] presenting to ER following unresponsiveness at home. She was found down by EMS after not feeling well for a
couple days prior to admission. A personal friend gives history as patient could not elaborate. Unclear how long she was found down, she was noted to be hypoxic and wheezing on initial assessments. She is placed on oxygen. Chest x-ray is clear.
ABG performed showing acute CO2 retention placed on BiPAP. She is admitted to IMU.
Acute hypoxic respiratory failure
Acute hypercarbic respiratory failure on BiPAP, ABG 7.
Unresponsive at home, found down by EMS
Leukocytosis
Acute on chronic anemia
Hyperkalemia
Acute kidney injury, 1.8 (BL 1.3-1.5)
Volume overload, proBNP 3010
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
Small bowel obstruction, status post left inguinal incarcerated hernia status post repair with mesh 12/18/17
COPD/ Asthma, followed at [facility] before, now with Dr Walters/Stu
Severe obstructive physiology, FEV1 0.83 L
Normal alpha1/igG levels, IgE 715/RAST panel; prior history of bronch with normal cell count/+MRSA/+PCR mycoplasma
Diffuse chronic sinusitis
RA
CKD
GERD/HH/Schatzki's ring dysmotility that was moderately severe and high-grade spontaneous reflux, positive pH probe when recumbent
HTN
HLD
Anxiety
Osteoporosis
B/L total hip replacements
AVR 04/07/13 at [facility] with Dr Santos
ZAINA
Plan
-
Stable for DC from pulmonary perspective.
Not bronchospastic on exam 02/13/2024.
Reportedly using PRN O2 at home. ok to DC on low rate supplemental oxygen.
Prior history of lung disease is noted: Asthma/COPD
Had seen Dr. Connell and Dr. Walters in the past, she does not recall the last time she had seen them
Notably had severe obstructive lung disease with concern for allergic rhinitis-positive IgE/RAST panel in the past
Status post bronchoscopy in the past with MRSA and PCR positive mycoplasma.
Chest x-ray noted: Radiology reports possible right lower lobe abnormality. Not impressive to my view.
Cannot rule out aspiration pneumonitis.
Barium swallow results noted with microaspiration.
Continue with speech pathology follow-up on recommendation
-
Not bronchospastic on exam. 02/14/2020 for possible acute exacerbation improving.
Continue Symbicort
Montelukast
Prednisone, decrease by 10 mg every 72 hours to off.
Albuterol nebulizer as needed
Incentive spirometer continues while recovering.
Acapella device as able
Patient has history of obstructive sleep apnea.
DC on BIPAP to be used at bedtime given hypercapnia.
Acute on chronic hypercapnic respiratory failure. ABG from 2018 with pCO2 of 69.
Initial head CT negative, she does not recall events.
Underlying dementia may be present as well
Mental status improved 5 and back to baseline
MELLY and CKD history
WBC noted-Improved. Currently afebrile
Urine culture with E. coli 02/11/2024
UA not impressive.
On nmn-cnbx-idhqdfpg aspiration pneumonitis. Minimal right lower lobe abnormality on chest x-ray. Will complete only 5 days of antibiotics-Transitioned to Augmentin.
Blood culture negative
Legionella negative
MRSA screening negative
Speech pathology/speech modified barium swallow 02/13/2024 noted.
Some degree of silent aspiration.
Modified diet
Prior ECHO results are reviewed indicating stable AVR
Can repeat testing
proBNP >3000 suggestive volume component as well
Diuresis per team As able.
Pulmonary will continue to follow
For DC today.
Recommend outpatient pulmonary follow-up after discharge, information left in the chart.
will sign off.

Diagnostic Data
Chest X-Ray: 02/11/24- 1. Mild hyperinflation, suggestive of COPD.
2. Hazy opacity at the right lung base, which may represent vascular crowding due to COPD or subtle pneumonia.
CT Scan: CAP 01/24/24- There is no evidence of soft tissue mass over the posterior upper chest. No CT finding that would correspond to the findings seen on recent chest radiograph. Minimal dependent atelectasis in the posterior and inferior lower
lobes. 2-mm subpleural nodule in the posterior right lower lobe. This is compatible with a benign nodule and no further follow-up is felt to be necessary.
Small central hiatal hernia. Cholelithiasis with no evidence of gallbladder wall thickening or adjacent edema. Colonic diverticula with no CT evidence of diverticulitis. Changes involving both shoulders and the right hip joint, highly suggestive of
rheumatoid arthritis. Status-post left hip replacement with resultant streak artifact.
Echo: 2013-LV normal in size, mild concentric LVH. New septal paradox is noted. Moderate diastolic dysfunction, EF 70%, biological AV prosthesis. AV peak gradient 20.6, AV mean gradient 11
PFT's: FEV1 1.28L, FVC 2.03L
Reports and relevant images were personally reviewed.
Subjective Data
-
Date of Service:
Date of Service: February 15, 2024
Chief Complaint: Pulmonary Follow Up
Subjective:
No new complaints.
Stable from resp. status overnight.
Objective Data
Data Reviewed
Vital Signs / I&O / Oxygen:
Vital Signs
Temp Pulse Resp BP Pulse Ox
98.0 F 63 16 168/66 99
02/15/24 07:19 02/15/24 08:29 02/15/24 07:40 02/15/24 08:29 02/15/24 07:19
Intake and Output
02/14/24 02/15/24 02/16/24
06:59 06:59 06:59
Intake Total 480 / 480 760 / 760
Balance 480 / 480 760 / 760
SaO2 99
Nasal Cannula flow liters per 2
minute
Physical Exam
General: Comfortable and Other (NAD)
HEENT: Normocephalic, Anicteric and Moist Mucous Membranes
Cardiovascular: S1-S2 and Regular Rhythm
Respiratory: Clear and Non-Labored Respirations
GI: Soft, Non Distended and Non Tender
Neurology: Awake, Alert and No Motor Deficits
Skin: Warm, Dry and Good Color
Labs/Micro/Reports
Lab Data
02/15/24 06:28
02/15/24 06:28
Microbiology
02/11/24 04:06 Urine Urine Culture - Final
Escherichia coli
02/11/24 10:57 Nose MRSA Screen - Final
No Methicillin Resistant Staphylococcus aureus isolated.
--- NOTE | 2024-02-15 12:02 | CM ---
Addendum entered by ORION Whalen 02/15/24 14:05:
Patient's son, was advised that cost will be 190 for w/c van, he was provided with the number to call, for payment. [phone]
Original Note:
Reviewed chart, spoke with attending. Patient is medically cleared for discharge. Spoke with Sheree in admissions at [facility] who confirmed bed for patient. She stated that she needs script for bipap, settings and neg Covid test results, scripts
are on chart. Will fax. # For report [phone] .
Met with patient who was agreeable to discharge and transfer to [facility]. She signed IMM. It was reviewed and no on chart.
Patient will take w/c van. Spoke with son about potential costs and he was agreeable.
Received call from Sheree in admissions at [facility], who stated that she needs the script for bipap. [facility] faxing over to number provided.
Plan: Case management will continue to follow and assist with discharge planning. Transfer to [facility] today.
--- NOTE | 2024-02-15 14:12 | W.DCSUMMARY ---
Discharge Summary
Discharge Data
Date of Admission: 02/11/24
Date of Discharge: 02/15/24
-
Pending Results: No
Hospital Course
83-year-old female with CRF (nighttime O2), COPD, HTN, HLD, CKD, rheumatoid arthritis on prednisone, AAS s/p TAVR, anxiety that presented to the hospital with hypoxemia after being found unresponsive at home. Suspicion for COPD exacerbation,
aspiration event. Patient initially required ICU level of care for high levels of oxygen and NIV. Was given bronchodilators, IV diuretic, IV steroids and IV antibiotics empirically. Oxygen status improved with these interventions. Was transition
to nightly BiPAP at 10/5 for chronic hypoxemic and hypercapnic respiratory failure. Was started on prednisone taper with plan to down titrate to home dose. Pulmonology evaluated the patient. Was started on Symbicort daily with referral for
outpatient follow-up provided. Physical therapy recommended SNF placement at discharge. Upon discharge she should continue with steroid taper, 1 more day of antibiotics, nightly BiPAP, and Acapella device. Will follow-up with pulmonology in
office. She had formal oxygen prescription evaluation at the end of physical therapy stay.
Video swallow examination showed silent aspiration. Recommendation to continue regular diet with mildly thickened (nectar thick) liquids after discharge to limit risk of future aspiration events
Discharge Plan
-
Patient Disposition: Assisted/SNF
Discharge Diagnosis/Procedures: Acute on chronic hypoxemic respiratory failure
COPD exacerbation
Aspiration pneumonitis
Acute kidney injury
Condition: Good
Diet: Other diet
Additional Diets: Regular/House diet with mildly thick (nectar thick) liquids
Activity: As tolerated
Driving Restrictions: Not until seen by your Dr
Bathing Restrictions: None
Blood Work: BMP in 5 days to check kidney function
Other Services: PT and OT
Specialty Instructions: Weigh Daily- Call MD for wt gain/loss 3 lbs overnight/5 lbs in 1 week
Activity Restrictions/Additional Instructions:
Patient should be on BiPAP 10/5 overnight for chronic hypercapnic and hypoxemic respiratory failure from COPD. Prescription for BiPAP placed in chart
Patient to be continued on Acapella device following discharge from
Following discharge from short-term rehab, should be scheduled for follow-up appointment with primary care provider.
She should also have appointment scheduled with pulmonology referral that is placed below
Instructions: Aspiration pneumonia
Referrals:
Barrett Steele MD [Active] - in two to three weeks (May see [facility])
Carlo Hernandez DO [Family Provider] -
Additional Discharge Medication Instructions: Continue Augmentin twice daily for 2 more days after discharge
Continue with prednisone taper as described below (10 mg decrease every 3 days)
Start Symbicort 2 puffs twice daily for COPD maintenance
Start Lexapro 5 mg for depression, consider up titration in 2 weeks
STOP lisinopril
If >3 pound weight gain over 24 to 48-hour period, consider 20 mg Lasix daily
Prescriptions:
New
aspirin 81 mg Tablet,Delayed Release (Dr/Ec)
81 mg PO DAILY 30 Days Qty: 30 0RF
amoxicillin-pot clavulanate 875-125 mg Tablet
1 tab PO Q12 2 Days Qty: 4 0RF
prednisone 20 mg Tablet
See Taper PO DAILY Qty: 30 0RF
Taper: Prednisone DC Starting at 40 mg daily
40 mg Daily for 3 Days and 0 Hour
30 mg Daily for 3 Days and 0 Hour
20 mg Daily for 3 Days and 0 Hour
10 mg Daily for 3 Days and 0 Hour
escitalopram oxalate 5 mg Tablet
5 mg PO DAILY 30 Days Qty: 30 0RF
budesonide-formoterol [Symbicort] 80-4.5 mcg/actuation Hfa Aerosol Inhaler
2 puff inhalation R BID 30 Days Qty: 10.2 0RF
Continued
montelukast 10 MG tablet
10 mg PO DAILY
gabapentin 300 MG capsule
300 mg PO DAILY
clonidine HCl 0.1 MG tablet
0.1 mg PO DAILY
albuterol sulfate 1 PUFF HFA aerosol inhaler
2 puff inhalation R Q4HPRN PRN (Reason: sob)
atorvastatin 80 MG tablet
80 mg PO QPM Qty: 30 0RF
amlodipine 5 MG tablet
5 mg PO BID Qty: 60 0RF
omeprazole 20 mg Capsule,Delayed Release(Dr/Ec)
20 mg PO DAILY
Discontinued
lisinopril 5 mg Tablet
5 mg PO DAILY
Discharge Orders:
Discharge Patient (As Directed); Ordered 02/15/24
Ordered By: Giovanny Koenig
Discharge Date and Time
Print Language: INDONESIAN
[2024-02-15 15:11] VITALS: BP 162/50
== END 2024-02-15 16:03 | DRG 177 ==
LOC: 3 WEST ACU 05:33
PROVIDERS: Hospitalist; Nurse Practitioner Primary Care; ADMITTING PHYSICIAN Internal Medicine; ATTENDING PHYSICIAN Internal Medicine; EMERGENCY PHYSICIAN Emergency Medicine; FAMILY PHYSICIAN Family Medicine Sports Medicine; OTHER PHYSICIAN Internal Medicine
PROC: 5A09457 Assistance with Respiratory Ventilation, 24-96 Consecutive Hours, Continuous Positive Airway Pressure (ICD-10-PCS; 2024-02-11)
DX: J69.0 Pneumonitis due to inhalation of food and vomit (principal); G92.8 Other toxic encephalopathy; J96.21 Acute and chronic respiratory failure with hypoxia; J96.22 Acute and chronic respiratory failure with hypercapnia; J44.1 Chronic obstructive pulmonary disease with (acute) exacerbation; J45.901 Unspecified asthma with (acute) exacerbation; E87.29 Other acidosis; I13.0 Hypertensive heart and chronic kidney disease with heart failure and stage 1 through stage 4 chronic kidney disease, or unspecified chronic kidney disease; N17.9 Acute kidney failure, unspecified; I5A Non-ischemic myocardial injury (non-traumatic); D63.1 Anemia in chronic kidney disease; I50.9 Heart failure, unspecified; F32.A Depression, unspecified; M06.9 Rheumatoid arthritis, unspecified; N18.30 Chronic kidney disease, stage 3 unspecified; Z95.3 Presence of xenogenic heart valve; D72.10 Eosinophilia, unspecified; K22.2 Esophageal obstruction; I48.0 Paroxysmal atrial fibrillation; E78.00 Pure hypercholesterolemia, unspecified; E87.5 Hyperkalemia; F41.9 Anxiety disorder, unspecified; G47.33 Obstructive sleep apnea (adult) (pediatric); J32.9 Chronic sinusitis, unspecified; K21.9 Gastro-esophageal reflux disease without esophagitis; Z87.19 Personal history of other diseases of the digestive system; M81.0 Age-related osteoporosis without current pathological fracture; S60.221A Contusion of right hand, initial encounter; S61.411A Laceration without foreign body of right hand, initial encounter; W06.XXXA Fall from bed, initial encounter; Y92.009 Unspecified place in unspecified non-institutional (private) residence as the place of occurrence of the external cause; Z79.52 Long term (current) use of systemic steroids; Z79.82 Long term (current) use of aspirin; Z79.899 Other long term (current) drug therapy; Z86.73 Personal history of transient ischemic attack (TIA), and cerebral infarction without residual deficits; Z87.891 Personal history of nicotine dependence
CPT/HCPCS: 12002; 36600; 70450; 71046; 73130; 74230; 80048; 80051; 80053; 81003; 81015; 82550; 82607; 82728; 82805; 82962; 83540; 83550; 83605; 83735; 83880; 84132; 84145; 84484; 85025; 85027; 87070; 87086; 87088; 87186; 87449; 87811; 92526; 92610; 92611; 93005; 93306; 94640; 94660; 96365; 96375; 97163; 97167; 97530; 97535; 99291